=== PATIENT | female | born 1955 | race Caucasian/White ===

== ENCOUNTER → 2021-04-07 14:01 | Outpatient (CLI) | payer BC, SELFPAY ==
--- NOTE | 2021-04-07 14:03 | CA_ITS ---
FINAL REPORT TECHNIQUE: Multiple transverse and longitudinal scans were performed of the femoropopliteal deep venous system, with augmentation and compression maneuvers. CLINICAL HISTORY: Chronic asymmetric swelling and pain of left leg after TKR 06/2019. Obesity FINDINGS: Normal phasic flow was noted in the visualized deep venous system. No intraluminal increased echogenicity is noted to suggest thrombus. There is normal compression and augmentation of the venous structures. No abnormal venous collaterals are seen. IMPRESSION: No evidence of deep venous thrombosis of the left lower extremity. Reviewed, Interpreted and Dictated by Edgardo Burr MD Transcribed by Devin Carmona Authenticated by Edgardo Burr MD on 04/07/2021 03:59:12 PM [facility]
--- NOTE | 2021-04-07 14:24 | XR_ITS ---
FINAL REPORT CLINICAL HISTORY: pain s/p tkr pain and swelling FINDINGS: 2 views of the left knee were obtained. There is no acute fracture or dislocation. There has been total joint prosthesis. There is no acute soft tissue abnormality. IMPRESSION: No acute process. Reviewed, Interpreted and Dictated by Edgardo Burr MD Transcribed by Devin Carmona Authenticated by Edgardo Burr MD on 04/07/2021 03:58:42 PM [facility]
[2021-04-07 16:07] LABS: Anion Gap 10.3 mEq/L (5-15); Blood Urea Nitrogen 12 mg/dl (7-17); Calcium 8.4 mg/dl (8.4-10.2); Carbon Dioxide 27 mmol/L (22.0-30.0); Chloride 106 mmol/L (98-107); Estimated Glomerular Filt Rate 101 ml/min (>60); GFR (African American) 122 ML/MIN (>60); Glucose 92 mg/dl (74-100); Potassium 4.3 mmoL/L (3.5-5.1); Sodium 139 mmol/L (136-145)
== END ==
PROVIDERS: PCP Family Medicine; Visit Provider Family Medicine
DX: M79.662 Pain in left lower leg (principal); M79.89 Other specified soft tissue disorders
CPT/HCPCS: 36415; 73560; 80048; 93971

== ENCOUNTER → 2022-05-17 09:33 | Outpatient (CLI) | payer MEDICARE, SELFPAY ==
[2022-05-17 10:34] LABS: Basophils # 0.1 K/mm3 (0-0.2); Eosinophils # 0.1 K/mm3 (0.0-0.4); Eosinophils % 2.1 % (0.1-12.0); Hematocrit 34.3 % (37.0-47.0); Hemoglobin 10.7 g/dL (12.2-16.2); Lymphocytes # 1.6 K/mm3 (0.7-4.5); Lymphocytes % 24.1 % (10-50); Mean Corpuscular HGB Conc 31.2 g/dL (31.8-35.4); Mean Corpuscular Hemoglobin 24.9 pg (27.0-31.2); Mean Corpuscular Volume 79.7 fl (81-99); Mean Platelet Volume 7.7 fl (7.4-10.4); Monocytes # 0.4 K/mm3 (0.1-1.0); Monocytes % 6.1 % (1.7-9.3); Neutrophils # 4.5 K/mm3 (1.8-7.8); Neutrophils % 66.7 % (37.0-80.0); Platelet Count 282 K/mm3 (142-424); Red Cell Distribution Width 16.1 % (11.5-17.5); White Blood Count 6.8 K/mm3 (4.8-10.8)
[2022-05-17 11:24] LABS: Chloride 107 mmol/L (98-107); Sodium 138 mmol/L (136-145)
[2022-05-17 11:25] LABS: Potassium 4.3 mmoL/L (3.5-5.1)
[2022-05-17 11:27] LABS: Alanine Aminotransferase 23 U/L (12-78); Alkaline Phosphatase 103 U/L (38-126); Anion Gap 9.3 mEq/L (5-15); Aspartate Amino Transferase 31 U/L (14-36); Bilirubin,Indirect 0.6 mg/dL (0.0-0.9); Bilirubin,Total 0.6 mg/dl (0.2-1.3); Bilirubin,Unconjugated 0.6 mg/dL (0.0-1.1); Blood Urea Nitrogen 14 mg/dl (7-17); Calcium 8.2 mg/dl (8.4-10.2); Carbon Dioxide 26 mmol/L (22.0-30.0); Cholesterol 166 mg/dl (140-200); Estimated Glomerular Filt Rate 72 ml/min (>60); GFR (African American) 87 ML/MIN (>60); Glucose 91 mg/dl (74-100); Total Protein,Serum 6.7 g/dl (6.3-8.2); Triglycerides 88 mg/dl (30-150); VLDL Cholesterol 18 mg/dL (0-40)
[2022-05-17 11:28] LABS: Chol/HDL Ratio 2.6 (1-3.5); HDL Cholesterol 65 mg/dl (40-60); Magnesium 2.1 mg/dl (1.6-2.3)
[2022-05-17 11:39] LABS: Direct LDL Cholesterol 83.09 mg/dL (100-129)
[2022-05-17 11:45] LABS: Free T4 (Free Thyroxine) 1.09 ng/dl (0.78-2.19)
[2022-05-17 11:59] LABS: Thyroid Stimulating Hormone 1.91 uIU/mL (0.465-4.68)
== END ==
LOC: LAB 09:35
PROVIDERS: PCP Family Medicine; Visit Provider Nurse Practitioner
DX: I48.0 Paroxysmal atrial fibrillation (principal); R00.1 Bradycardia, unspecified; R00.2 Palpitations; R07.9 Chest pain, unspecified; R60.0 Localized edema; R94.31 Abnormal electrocardiogram [ECG] [EKG]
CPT/HCPCS: 36415; 80048; 80061; 80076; 83735; 84439; 84443; 85025; 93270

== ENCOUNTER → 2022-06-19 08:20 | Outpatient (CLI) | payer MEDICARE, SELFPAY ==
--- NOTE | 2022-06-19 | CA_ITS ---
APPROVED REPORT Exam: Pharmacologic Technologist: Dorina Reynoso, Ht: 5 ft 4 in Wt: 254 lbs BSA: 2.17 m2 HR: 56 bpm BP: 123/48 mmHg Medical History Medications: Potassium Chloride,,,,, Gabapentin,,,,, Metoprolol Succinate,,,,, Albuterol,,,,, Protonix,,,,, BuMETANIDE,,,,, Pramipexale,,,,, Stress Test Details Test: LEXISCAN HR Resting HR: 55 bpm Max Heart Rate (APMHR): 155.093943 bpm Max HR Achieved: 81 bpm Target HR (85% APMHR): 131.687990 bpm % of APMHR: 52.26 Recovery HR: 66 bpm BP Resting BP: 123/48 mmHg Max BP: 123/48 mmHg Recovery BP: 116.0/51.0 mmHg ECG Clinical Exercise duration: 04:00 min Highest Stage Achieved: Exercise capacity: 1.0 METs Stress ECG Conclusion During lexiscan pt experinced mild SOA. Rare PAC noted. <1mm ST depression. Non diagnostic, target HR not achieved, no ischemic changes. Test Summary REST . . . . . . . Sitting REST 02:27 . . 55 . 123/ 48 . . Stage 1 01:00 . . 79 . . . . Stage 2 01:00 . . 75 . . . . Stage 3 01:00 . . 71 . 119/ 49 . . Stage 4 01:00 . . 70 . 117/ 49 . Stop exercise at 04:00 RECOVERY 01:00 . . 69 . . . . RECOVERY 02:00 . . 67 . 116/ 51 . . RECOVERY 03:00 . . 65 . 114/ 47 . . RECOVERY 03:12 . . 67 . 114/ 47 . . Electronically signed by : Gurvinder Escalante MD 06/20/2022 09:54:09
--- NOTE | 2022-06-19 08:34 | NM_ITS ---
APPROVED REPORT Exam: Nuclear Stress Test Indication: DYSRYTHMIA, FM HX,. C.P., SOA, PALPITATIONS, SYNCOPE, A-FIB Patient Location: Outpatient Stress Tech: Dorina Reynoso HI Tech:Alison AdamsBEN baer RT (R)(N)(M) Ht: 5 ft 5 in Wt: 254 lbs Bra Size: DD HR: 56 bpm BP: 123/48 mmHg BSA: 2.19 m2 TID: 1.16 BMI: 42.2 History: DYSRYTHMIA, FM HX,. C.P., SOA, PALPITATIONS, SYNCOPE, FATIGUE, AFIB PT CANNOT LAY ON STOMACH FOR PRONE IMAGES Procedure: Patient received 0.0 mg of intravenous Lexiscan, resting heart rate 56 bpm, resting blood pressure 123/48 mmHg, with Lexiscan maximum heart rate achieved was 69 bpm which is % of the maximum predicted heart rate and blood pressure was 119/49 mmHg. With Lexiscan, patient denied any complaint of chest pain. Cardiac Stress and Resting SPECT Images: Cardiac Stress and Resting SPECT images were obtained using technetium 99m Myoview 29.3 mCi stress and 9.46 mCi at rest. Stress images reveal severely decreased myocardial activity in the anterior wall while rest images reveal significant improvement but still decreased in the anterior wall. Gated images calculated ejection fraction of 59% with normal wall motion Conclusion: Previous nontransmural myocardial infarction well in the anterior wall with a significant degree of reversible ischemia accompanied by normal ejection fraction normal wall motion Electronically signed by : Gurvinder Escalante MD 06/20/2022 13:07:09
[2022-06-19 11:44] LABS: Lipase 120 U/L (23-300)
[2022-06-19 11:48] LABS: Iron 34 ug/dL (37-170)
[2022-06-19 11:57] LABS: Total Iron Binding Capacity 443 ug/dL (265-497)
== END ==
LOC: RT 08:22
PROVIDERS: PCP Family Medicine; Visit Provider Nurse Practitioner
DX: R00.1 Bradycardia, unspecified (principal); R07.9 Chest pain, unspecified; R60.0 Localized edema; R94.31 Abnormal electrocardiogram [ECG] [EKG]; R10.13 Epigastric pain
CPT/HCPCS: 36415; 78452; 83540; 83550; 83690; 93017; 93306; A9502; J2785

== ENCOUNTER → 2022-06-26 10:37 | Outpatient (CLI) | payer MEDICARE, SELFPAY ==
--- NOTE | 2022-06-26 10:38 | CA_ITS ---
FINAL REPORT TECHNIQUE: Ultrasound images of the deep venous system were obtained from the left groin to the calf veins. CLINICAL HISTORY: edema x 6 years. Patient denies trauma. Morbid obesity. Left lower extremity painful to touch. FINDINGS: The deep venous system is normally compressible. Normal flow is identified. IMPRESSION: No evidence of left lower extremity DVT. Reviewed, Interpreted and Dictated by Fernando Wayne III, MD Transcribed by Brenda Garcia Authenticated and . [facility]
== END ==
LOC: RT 10:38
PROVIDERS: PCP Family Medicine; Visit Provider Nurse Practitioner
DX: E66.01 Morbid (severe) obesity due to excess calories (principal); I20.8 Other forms of angina pectoris; I48.0 Paroxysmal atrial fibrillation; R00.1 Bradycardia, unspecified; R00.2 Palpitations; R60.0 Localized edema; R60.9 Edema, unspecified; R94.31 Abnormal electrocardiogram [ECG] [EKG]; R94.39 Abnormal result of other cardiovascular function study; Z68.42 Body mass index [BMI] 45.0-49.9, adult
CPT/HCPCS: 93971

== ENCOUNTER 2022-06-29 08:46 | Day surgery (SDC) | payer MEDICARE, SELFPAY ==
[2022-06-29] VITALS (10 sets, daily range): BP systolic 108–162; BP diastolic 58–76; PULSE 65–77; RESP 16–18; O2SAT 94–100; BMI 45.8
--- NOTE | 2022-06-29 07:17 | IR_ITS ---
APPROVED REPORT Patient Location: Outpatient [employer]: BEN Huerta RT (R) PROCEDURES Left heart catheterization Left ventriculogram Selective coronary angiogram INDICATION Abnormal Myoview, Angina pectoris Informed consent was obtained prior to the procedure. COMPLICATIONS None Estimated Blood Loss: Less than 10 mls TECHNIQUE One percent lidocaine used to anesthetize the right anterior aspect of the wrist. The right radial artery was accessed via the Seldinger technique. A 6 [place] sheath was placed in the right radial artery. 150 mg magnesium sulfate, 800 mcg of nitroglycerin, 1mg Lidocaine and 5000 U Heparin were given through the arterial sheath. The papa catheter was also used to perform left heart catheterization, left ventriculogram and selective coronary angiogram. At the end of the procedure the sheath was removed good hemostasis was achieved using Traclet band, patient was transferred to the postop holding area in stable condition. ANGIOGRAPHIC RESULTS The left main artery Normal The left anterior descending artery Is proximally normal and has a mid vessel 30% calcified nonflow limiting stenosis The circumflex artery Nondominant with mild 10% luminal regularities The right coronary artery Dominant with mild 10% luminal irregularities The PATEL ventriculogram reveals Normal 65% The left ventricular end-diastolic pressure 25 mmHg IMPRESSION Mild nonflow limiting coronary disease Normal ejection fraction Elevated LVEDP consistent with diastolic dysfunction PLAN 1. Treatment of diastolic dysfunction 2. Risk factor modification Electronically signed by : Gurvinder Escalante MD 06/29/2022 12:23:53
[2022-06-29 09:20] LABS: Basophils % 0.5 % (0.1-2.0); Eosinophils # 0.2 K/mm3 (0.0-0.4); Eosinophils % 2.4 % (0.1-12.0); Hematocrit 35.5 % (37.0-47.0); Hemoglobin 11.4 g/dL (12.2-16.2); Lymphocytes # 1.7 K/mm3 (0.7-4.5); Lymphocytes % 21.1 % (10-50); Mean Corpuscular HGB Conc 32.1 g/dL (31.8-35.4); Mean Corpuscular Volume 77.7 fl (81-99); Mean Platelet Volume 7.5 fl (7.4-10.4); Monocytes # 0.4 K/mm3 (0.1-1.0); Neutrophils # 5.6 K/mm3 (1.8-7.8); Platelet Count 315 K/mm3 (142-424); Red Blood Count 4.56 M/mm3 (4.20-5.40); Red Cell Distribution Width 16.1 % (11.5-17.5); White Blood Count 7.8 K/mm3 (4.8-10.8)
[2022-06-29 09:27] LABS: Chloride 99 mmol/L (98-107); Sodium 136 mmol/L (136-145)
[2022-06-29 09:31] LABS: Blood Urea Nitrogen 15 mg/dl (7-17); Calcium 8.1 mg/dl (8.4-10.2); Carbon Dioxide 30 mmol/L (22.0-30.0); Creatinine Clearance Estimated 46 mL/min (50-200); Estimated Glomerular Filt Rate 72 ml/min (>60); GFR (African American) 87 ML/MIN (>60); Glucose 89 mg/dl (74-100)
--- NOTE | 2022-06-29 11:55 | SUR.PHASEII ---
no family in the waiting area for Dr. Escalante to speak with after procedure.
== END 2022-06-29 14:47 | disposition home or self-care (01) ==
PROVIDERS: PCP Family Medicine; Visit Provider Internal Medicine
DX: E66.01 Morbid (severe) obesity due to excess calories (principal); I25.118 Atherosclerotic heart disease of native coronary artery with other forms of angina pectoris; I48.0 Paroxysmal atrial fibrillation; R00.1 Bradycardia, unspecified; R00.2 Palpitations; R60.0 Localized edema; R60.9 Edema, unspecified; R94.31 Abnormal electrocardiogram [ECG] [EKG]; R94.39 Abnormal result of other cardiovascular function study; Z68.41 Body mass index [BMI] 40.0-44.9, adult; Z79.899 Other long term (current) drug therapy; Z79.01 Long term (current) use of anticoagulants; I10 Essential (primary) hypertension
CPT/HCPCS: 80048; 85025; 93458; 99152; C1725; C1760; C1769; J1644; Q9967

== ENCOUNTER → 2022-07-19 15:16 | Outpatient (CLI) | payer MEDICARE, SELFPAY ==
[2022-07-19 16:51] LABS: Anion Gap 13.9 mEq/L (5-15); Blood Urea Nitrogen 17 mg/dl (7-17); Calcium 8.1 mg/dl (8.4-10.2); Carbon Dioxide 27 mmol/L (22.0-30.0); Chloride 101 mmol/L (98-107); Estimated Glomerular Filt Rate 63 ml/min (>60); GFR (African American) 76 ML/MIN (>60); Glucose 110 mg/dl (74-100); Potassium 3.9 mmoL/L (3.5-5.1); Sodium 138 mmol/L (136-145)
== END ==
PROVIDERS: PCP Family Medicine; Visit Provider Nurse Practitioner Family
DX: R60.9 Edema, unspecified (principal); R94.31 Abnormal electrocardiogram [ECG] [EKG]
CPT/HCPCS: 36415; 80048

== ENCOUNTER → 2022-10-18 23:57 | Outpatient (CLI) | payer MEDICARE, SELFPAY ==
[2022-10-18 19:09] LABS: Alanine Aminotransferase 20 U/L (12-78); Albumin Level 3.7 g/dl (3.5-5.0); Albumin/Globulin Ratio 1.2 (1.1-1.8); Alkaline Phosphatase 87 U/L (38-126); Anion Gap 12.1 mEq/L (5-15); Aspartate Amino Transferase 26 U/L (14-36); Bilirubin,Total 0.5 mg/dl (0.2-1.3); Blood Urea Nitrogen 15 mg/dl (7-17); Calcium 8.3 mg/dl (8.4-10.2); Carbon Dioxide 27 mmol/L (22.0-30.0); Chloride 104 mmol/L (98-107); Chol/HDL Ratio 1.9 (1-3.5); Cholesterol 164 mg/dl (140-200); Estimated Glomerular Filt Rate 63 ml/min (>60); GFR (African American) 76 ML/MIN (>60); Glucose 91 mg/dl (74-100); HDL Cholesterol 85 mg/dl (40-60); Potassium 4.1 mmoL/L (3.5-5.1); Sodium 139 mmol/L (136-145); Total Protein,Serum 6.7 g/dl (6.3-8.2); Triglycerides 78 mg/dl (30-150); VLDL Cholesterol 16 mg/dL (0-40)
[2022-10-18 19:20] LABS: Direct LDL Cholesterol 65.02 mg/dL (100-129)
[2022-10-18 19:50] LABS: Basophils % 0.4 % (0.1-2.0); Eosinophils # 0.2 K/mm3 (0.0-0.4); Eosinophils % 3.5 % (0.1-12.0); Hematocrit 32.8 % (37.0-47.0); Lymphocytes % 31.9 % (10-50); Mean Corpuscular HGB Conc 30.4 g/dL (31.8-35.4); Mean Corpuscular Hemoglobin 22.8 pg (27.0-31.2); Mean Corpuscular Volume 74.8 fl (81-99); Mean Platelet Volume 7.9 fl (7.4-10.4); Monocytes # 0.3 K/mm3 (0.1-1.0); Monocytes % 5.5 % (1.7-9.3); Neutrophils # 3.6 K/mm3 (1.8-7.8); Neutrophils % 58.7 % (37.0-80.0); Platelet Count 269 K/mm3 (142-424); Red Blood Count 4.39 M/mm3 (4.20-5.40); Red Cell Distribution Width 16.3 % (11.5-17.5); White Blood Count 6.1 K/mm3 (4.8-10.8)
[2022-10-18 21:20] LABS: Iron 25 ug/dL (37-170)
[2022-10-18 21:28] LABS: Hemoglobin A1C 5.4 % (4.0-6.0)
[2022-10-18 21:29] LABS: Total Iron Binding Capacity 479 ug/dL (265-497)
== END ==
PROVIDERS: PCP Family Medicine; Visit Provider Family Medicine
DX: E66.9 Obesity, unspecified (principal); Z86.2 Personal history of diseases of the blood and blood-forming organs and certain disorders involving the immune mechanism; Z68.41 Body mass index [BMI] 40.0-44.9, adult; D50.9 Iron deficiency anemia, unspecified; Z79.899 Other long term (current) drug therapy
CPT/HCPCS: 80053; 80061; 83036; 83540; 83550; 85025

== ENCOUNTER 2022-11-16 09:00 | Outpatient (RCR) | payer MEDICARE, SELFPAY ==
--- NOTE | 2022-10-31 15:46 | HMH.PTOPWND ---
Rehab Outpt Wound Evaluation Rehab OP Wound Evaluation Start: 10/31/22 15:27 Freq: Status: Active Protocol: Document 10/31/22 15:27 GIOVANNI (Rec: 10/31/22 15:46 PHORPATRICK [id number]) E-signed By Lanre Keller, PT Subjective/History History History This is the initial PT eval for María Bucio, 67 yowf who presents with c/o B LE worsening edema x ~ 7 yrs ago. She reports, I was getting an iron infusion and they messed it all up and it didn't go into my vein. That bothered my arm so much I couldn't move it and it hurt terribly the next day. Also, the next day both of my legs swelled up really bad and the haven't went down since. She reports her PCP changed her diuretic ~ 2 wks ago and this has helped her edema, a little. SHe reports significant tenderness in the gaiter area of B LE and intermittent pains from restless leg in B LE. She has PMH of CAD, a-fib, COPD, B TKA, CCY, partial hysterectomy , gastric bypass. Subjective Subjective Currently she reports 0/10 pain, but at worst pain is 10/ 10 intermittently. She presents with 3+ pitting edema to B LE at this time and MODERATE fibrotic edema throughout B LE, R > L. 3/4 TTP to B LE in gaiter area. Mild blanchable erythema noted to B lowe rlegs as well. New diagnosis of cancer in past 12 No months? Lymphedema Eval Classification of Lymphedema Secondary Lymphedema Yes: multi-factorial Stemmer's sign Stemmer's Sign no Stage of Lymphedema Lymphedema stages Stage II (Pitting edema, increased fibrosis w/ decreased pitting) Skin Changes Dry Skin Yes Taut, Shiny Skin Yes Skin Folds Yes Redness Yes Wounds Yes Discoloration of Skin Yes Other Changes Yes Pain Scale Pain Scale (0-10) 10 Affected Extremities Areas Affected by Lymphedema/Edema Right Lower Extremity,Left Lower Extremity Manual Lymphatic Drainage Treatment Area MLD Treatment Area Right Lower Extremity,Left Lower Extremity Wound Problems/Impairments Impairments Problems/Impairmments Palpation Tenderness,Impaired Endurance,Impaired Gait Pattern,Impaired Walking, Impaired Standing,Impaired Household Care,Impaired Stair Climbing,Impaired Incline Stepping,Impaired Stepping on Uneven Surface,Increased Edema ,Lymphedema Present,Wound Care Needs,Subjective C/O Pain, Impaired Self Care/Self Management Prognosis Rehab Potential Good Clinical Impression Consistent with Diagnosis Yes Short Term Goals Number of Weeks 2 Decreased Palpation Tenderness Yes: 03/18 B lower leg Decrease Edema Yes: 2+ pitting edema B LE Decrease Lymphedema Yes: MILD fibrotic edema B LE Decrease Subjective C/O Pain Yes: 08/21 at worst Patient to Understand Lymphedema Yes Treatment and Exercises Decrease Girth Measurments by (cm) Yes: B LE total by 5 cm ea Cotton Classer Aide Goals Number of Weeks 4 Decreased Palpation Tenderness Yes: 02/15 B lower leg Improve Ability For Household Care Yes Decrease Edema Yes: 1+ pitting edema to B LE Decrease Lymphedema Yes: No fibrotic edema B LE Decrease Subjective C/O Pain Yes: 05/22 at worst Patient to be Ind w/ HEP Yes Patient to be Ind w/ [place] Yes Compression Garments Patient to Adhere Lymphedema Precautions Yes Decrease Girth Measurments by (cm) Yes: B LE total by 20 cm ea Outpatient Therapy Plan of Care Treatment Plan May Include Therapeutic Exercise Including Home Yes Exercise Program Manual Therapy Techniques Yes Neuromuscular Re-education Yes Therapeutic Activities to Return to Yes Previous Functional/Work Level ADL/Self Care Education Yes Orthotics/Bracing/Splinting Yes Vasopneumatic Compression Pump Yes Manual Lymphatic Drainage Yes Wound Care Yes Eval/Re-Eval Yes Frequency Times per week 2 Duration Number of Weeks 4 Addendums This patient is a candidate for social No or vocational rehab? Patient/Guardian verbally acknowledges Yes understanding of treatment program and consents to further treatment? Patient/Guardian verbally acknowledges Yes understanding of diagnosis, prognosis and goals for treatment? Eval Complexity PT Charges 42126 - High Complexity PHYSICIAN CERTIFICATION: I certify the specified therapy services for María Bucio are required, authorized, and reviewed every 30 days.
== END 2022-11-16 10:10 | disposition home or self-care (01) ==
LOC: PT 09:00
PROVIDERS: Visit Provider Family Medicine
DX: R60.0 Localized edema (principal)
CPT/HCPCS: 97140; 97163

== ENCOUNTER → 2023-01-01 08:24 | Outpatient (CLI) | payer MEDICARE, SELFPAY ==
[2023-01-01 19:04] LABS: Basophils % 0.8 % (0.1-2.0); Eosinophils # 0.1 K/mm3 (0.0-0.4); Eosinophils % 2.2 % (0.1-12.0); Hematocrit 28.2 % (37.0-47.0); Hemoglobin 8.6 g/dL (12.2-16.2); Lymphocytes # 1.2 K/mm3 (0.7-4.5); Lymphocytes % 21.3 % (10-50); Mean Corpuscular HGB Conc 30.5 g/dL (31.8-35.4); Mean Corpuscular Hemoglobin 21.6 pg (27.0-31.2); Mean Platelet Volume 9.2 fl (7.4-10.4); Monocytes # 0.5 K/mm3 (0.1-1.0); Monocytes % 8.1 % (1.7-9.3); Neutrophils # 3.9 K/mm3 (1.8-7.8); Neutrophils % 67.6 % (37.0-80.0); Platelet Count 332 K/mm3 (142-424); Red Blood Count 3.97 M/mm3 (4.20-5.40); Red Cell Distribution Width 17.5 % (11.5-17.5); White Blood Count 5.7 K/mm3 (4.8-10.8)
[2023-01-01 19:51] LABS: Alanine Aminotransferase 21 U/L (12-78); Albumin/Globulin Ratio 1.5 (1.1-1.8); Alkaline Phosphatase 69 U/L (38-126); Anion Gap 12.1 mEq/L (5-15); Aspartate Amino Transferase 30 U/L (14-36); Bilirubin,Total 0.5 mg/dl (0.2-1.3); Blood Urea Nitrogen 18 mg/dl (7-17); Calcium 8.5 mg/dl (8.4-10.2); Carbon Dioxide 26 mmol/L (22.0-30.0); Chloride 105 mmol/L (98-107); Chol/HDL Ratio 3.1 (1-3.5); Cholesterol 178 mg/dl (140-200); Estimated Glomerular Filt Rate 72 ml/min (>60); GFR (African American) 87 ML/MIN (>60); Globulin 2.7 g/dL (1.3-3.2); Glucose 85 mg/dl (74-100); HDL Cholesterol 57 mg/dl (40-60); Potassium 4.1 mmoL/L (3.5-5.1); Sodium 139 mmol/L (136-145); Total Protein,Serum 6.7 g/dl (6.3-8.2); Triglycerides 75 mg/dl (30-150); VLDL Cholesterol 15 mg/dL (0-40)
[2023-01-01 20:02] LABS: Direct LDL Cholesterol 96.04 mg/dL (100-129)
[2023-01-01 20:44] LABS: Iron 23 ug/dL (37-170)
[2023-01-01 20:53] LABS: Total Iron Binding Capacity 497 ug/dL (265-497)
[2023-01-01 21:15] LABS: Thyroid Stimulating Hormone 1.15 uIU/mL (0.465-4.68)
== END ==
PROVIDERS: PCP Family Medicine; Visit Provider Family Medicine
DX: R05.9 Cough, unspecified (principal); R07.9 Chest pain, unspecified; Z86.2 Personal history of diseases of the blood and blood-forming organs and certain disorders involving the immune mechanism; R53.83 Other fatigue
CPT/HCPCS: 80053; 80061; 83540; 83550; 84443; 85025

== ENCOUNTER 2024-07-14 11:35 | Outpatient (CLI) | payer MEDICARE, SELFPAY ==
[2024-07-14 18:32] LABS: Basophils # 0.1 K/mm3 (0-0.2); Eosinophils # 0.1 Kmm3 (0.0-0.4); Eosinophils % 2.6 % (0.1-12.0); Hematocrit 32.6 % (37.0-47.0); Hemoglobin 9.5 g/dL (12.2-16.2); Immature Granulocytes # 0.01 10^3uL; Immature Granulocytes % 0.2 %; Lymphocytes # 1.2 K/mm3 (0.7-4.5); Lymphocytes % 24.3 % (10-50); Mean Corpuscular HGB Conc 29.1 g/dL (31.8-35.4); Mean Corpuscular Hemoglobin 25.5 pg (27.0-31.2); Mean Corpuscular Volume 87.4 fl (81-99); Monocytes # 0.4 K/mm3 (0.1-1.0); Monocytes % 8.7 % (1.7-9.3); Neutrophils # 3.1 K/mm3 (1.8-7.8); Neutrophils % 63.2 % (37.0-80.0); Nucleated Red Blood Cells # 0 10^3/uL; Nucleated Red Blood Cells % 0 %; Platelet Count 235 K/mm3 (142-424); Red Blood Count 3.73 M/mm3 (4.20-5.40); Red Cell Distribution Width 15.1 % (11.5-17.5); Red Cell Distribution Width-SD 48.3 fL; White Blood Count 4.9 K/mm3 (4.8-10.8)
[2024-07-14 19:01] LABS: Alanine Aminotransferase 19 U/L (12-78); Albumin Level 3.7 g/dl (3.5-5.0); Albumin/Globulin Ratio 1.4 (1.1-1.8); Alkaline Phosphatase 63 U/L (38-126); Anion Gap 8.3 mEq/L (5-15); Aspartate Amino Transferase 27 U/L (14-36); Bilirubin,Total 0.4 mg/dl (0.2-1.3); Blood Urea Nitrogen 21 mg/dl (7-17); Calcium 8.3 mg/dl (8.4-10.2); Carbon Dioxide 27 mmol/L (22.0-30.0); Chloride 107 mmol/L (98-107); Chol/HDL Ratio 2.2 (1-3.5); Cholesterol 160 mg/dl (140-200); Estimated Glomerular Filt Rate 72 ml/min (>60); GFR (African American) 87 ML/MIN (>60); Globulin 2.6 g/dL (1.3-3.2); Glucose 75 mg/dl (74-100); HDL Cholesterol 72 mg/dl (40-60); Potassium 4.3 mmoL/L (3.5-5.1); Sodium 138 mmol/L (136-145); Total Protein,Serum 6.3 g/dl (6.3-8.2); Triglycerides 63 mg/dl (30-150); VLDL Cholesterol 13 mg/dL (0-40)
[2024-07-14 19:12] LABS: Direct LDL Cholesterol 59.92 mg/dL (100-129)
[2024-07-14 19:14] LABS: Hemoglobin A1C 4.7 % (4.0-6.0)
[2024-07-14 19:37] LABS: Thyroid Stimulating Hormone 1.96 uIU/mL (0.465-4.68)
[2024-07-14 19:57] LABS: Vitamin B12 224 pg/mL (239-931)
== END 2024-07-14 23:59 | disposition home or self-care (01) ==
LOC: LAB.DROPOF 07-15 14:38
PROVIDERS: PCP Nurse Practitioner; Visit Provider Nurse Practitioner
DX: I48.0 Paroxysmal atrial fibrillation (principal); I25.10 Atherosclerotic heart disease of native coronary artery without angina pectoris; I10 Essential (primary) hypertension; J44.9 Chronic obstructive pulmonary disease, unspecified; R60.0 Localized edema
CPT/HCPCS: 80053; 80061; 82607; 83036; 84443; 85025

== ENCOUNTER 2024-08-11 10:41 | Outpatient (CLI) | payer MEDICARE, SELFPAY ==
--- OUTSIDE RECORDS SUMMARY | 2024-07-15 14:30 | XMS_ITS | Encounter Summary ---
Author Organization [facility] Address [address] [place] [address] Care Team Providers Care Ballpoint Pen Cartridge Tester Name Role Phone Unavailable Primary Care Provider Unavailabl e Reason for Referral * Consultation (Routine) - Authorization Not Needed Specialty Diagnoses / Procedures Referred By Akhil myers Referred To Contact Wound Care Diagnoses Venous stasis ulcer of other part of right lower leg limited to breakdown of skin with varicose veins (HCC) Lymphedema Procedures IA DEBRIDEMENT SUBCUTANEOUS TISSUE 1ST 20 SQ CM/< IA DEBRIDEMENT MUSCLE &/FASCIA 1ST 20 SQ CM/< IA DEBRIDEMENT BONE 1ST 20 SQ CM/< IA DEBRIDEMENT SUBCUTANEOUS TISSUE EA ADDL 20 SQ CM IA DEBRIDEMENT MUSCLE &/FASCIA EA ADDL 20 SQ CM IA DEBRIDEMENT BONE EACH ADDITIONAL 20 SQ CM IA DEBRIDEMENT OPEN WOUND FIRST 20 SQ CM/< IA DEBRIDEMENT OPN WND EA ADDL 20 SQ CM/PRT THEREOF Marah Mccormick PA-C [address] [place] [address] Phone: tel: fax: [facility] [place] [address] Phone: tel: fax: Referral ID Status Reason Start Date Expiration Date Visits Requested Visits Authorized [id number] Authorization Not Needed Specialty Services Required 07/21/2024 07/15/2025 99 99 Comments Active venous stasis ulcer - undergoing venous reflux work-up at [facility] FOR CIRCAID WRAPS for post-treatment if able * Ultrasound (Routine) - Closed Specialty Diagnoses / Procedures Referred By Akhil myers Referred To Contact Radiology Diagnoses Venous stasis ulcer of other part of right lower leg limited to breakdown of skin with varicose veins (HCC) Lymphedema Procedures [facility] REFL[facility] US COMMUNICATION ORDER Marah Mccormick PA-C [address] [place] [address] Phone: tel: fax: [facility] [place] [address] [place] [address] Phone: tel: fax: Referral ID Status Reason Start Date Expiration Date Visits Re quested Visits Authorized [id number] Closed 07/15/2024 07/15/2025 1 1 Reason for Visit * Reason Comments Consult Encounter Details Date Type Department Care Team (Late st Contact Info) Description 07/15/2024 2:30 PM EDT Office Visit [facility] [place] [address] [place] [address] Marah Mccormick PA-C [address] [place] [address] Venous stasis ulcer of other part of right lower leg limited to breakdown of skin with varicose veins (HCC) (Primary Dx); Lymphedema Social History Tobacco Use Types Packs/Day Years Used Date Smoking Tobacco: Never Smokeless Tobacco: Never Tobacco Cessation:Counseling Given: Not Answered Alcohol Use Standard Drinks/Week Comments Never 0 (1 standard drink = 0.6 oz pur e alcohol) Comments Unknown Sex and Gender Information Value Date Recorded Sex Assigned at Not on file Legal Sex Female 3:42 PM EST Gender Identity Not on file Sexual Orientation Not on file documented as of this encounter Last Filed Vital Signs Vital Sign Reading Time Taken Comments Blood Pressure 158/80 07/15/2024 2:34 PM EDT Pulse 61 07/15/2024 2:34 PM EDT Temperature 37 C (98.6 F) 07/15/2024 2:34 PM EDT Respiratory Rate - - Oxygen Saturation - - Inhaled Oxygen Concentration - - Weight 120.1 kg (264 lb 12.8 oz) 07/15/2024 2:34 PM EDT Height - - Body Mass Index - - documented in this encounter Ordered Prescriptions Prescription Sig Dispense Quantity Refills Last Filled Start Date End Date C-Thigh Highs MISCELLANEOU 1 Device by MISCELLANEOUS route once for 1 dose. 20-30 mmHg 1 Each 07/15/2024 07/16/19 25 documented in this encounter Progress Notes * Marah Mccormick PA-C - 07/15/2024 2:30 PM EDT Images from the original note were not included. Patient Name: María Bucio Date of : 1955 Date of Service:07/15/2024 INITIAL VISIT - CONSULTATION History: A 68 y.o. female with a history of bilateral lower extremity varicose veins with weeping, edema and active wound of the right lower leg. She presents for evaluation in referral from her PCP.Symptoms include: aching, heaviness, cramping, throbbing, pain, pruritus, swelling, and restless legs Prior vein treatments include: None. Compression stockings have been worn intermittently over theyears and actually worsen her symptoms as they have been knee high and cause popliteal varicosity irritation. Family history is positive for varicose veins in mother and sibling(s). Negative history of SVT/DVT/PE. She has never seen wound care. Allergies Allergen Reactions Ropinirole Nausea And Vomiting Current Outpatient Medications Medication Sig Dispense Refill ELIQUIS 5 mg Oral Tablet gabapentin (NEURONTIN) 600 mg Oral Tablet Take 600 mg by mouth daily. metoclopramide HCl (GIMOTI) 15 mg/spray Nasl spray with pump 1 [place] by Nasal route. pramipexole (MIRAPEX) 1 mg Oral Tablet rosuvastatin (CRESTOR) 10 mg Oral Tablet Take 10 mg by mouth nightly. sotaloL (BETAPACE) 80 mg Oral Tablet albuterol (PROVENTIL HFA;VENTOLIN HFA) 90 mcg/actuation Inhl HFA Aerosol Inhaler Inhale 2 Puffs into the lungs. aspirin 81 mg Oral Tablet, Delayed Release (E.C.) Take 81 mg by mouth daily. C-Thigh Highs MISCELLANEOU 1 Device by MISCELLANEOUS route once for 1 dose. 20- 30 mmHg 1 Each 0 No current facility-administered medications for this visit. History reviewed. No pertinent past medical history. Social History Socioeconomic History Marital status: Spouse name: Not on file Number of children: Not on file Years of education: Not on file Highest education level: Not on file Occupational History Not on file Tobacco Use Smoking status: Never Smokeless tobacco: Never Substance and Sexual Activity Alcohol use: Never Drug use: Never Sexual activity: Not on file Other Topics Concern Not on file Social History Narrative Not on file Social Drivers of Health Financial Resource Strain: Not on file Food Insecurity: Not on file Transportation Needs: Not on file Physical Activity: Not on file Stress: Not on file Social Connections: Not on file Intimate Partner Violence: Not At Risk (04/05/2023) Received from [facility] Abuse Screen Feels Unsafe at Home or Work/School: no Feels Threatened by Someone: no Does Anyone Try to Keep You From Having Contact with Others or Doing Things Outside Your Home?: no Physical Signs of Abuse Present: no Housing Stability: Unknown (04/05/2023) Received from [facility] Housing Stability Current Living Arrangements: home Potentially Unsafe Housing Conditions: Not on file Past Surgical History: Procedure Laterality Date CHOLECYSTECTOMY 1996 TUBAL LIGATION 1984 Social History Tobacco Use Smoking Status Never Smokeless Tobacco Never Review of Systems: No history of shortness of breath, chest pain, fever or chills. Physical Exam: Vitals: 07/15/24 1434 BP: 158/80 Pulse: 61 Temp: 98.6 ??F (37 ??C) GENERAL: Alert & oriented x 3. LUNGS: Respirations non-labored. RIGHT LOWER EXTREMITY: Lipodermatosclerosis with open wound lateral lower leg. 2+ pitting edema to level of knee. Pedal pulses intact by doppler. LEFT LOWER EXTREMITY: Lipodermatosclerosis. No open wounds/sores. 2+ pitting edema to the level of the knee. Pedal pulses intact by doppler. Venous Stasis Exam Findings: Left: edema, pigmentation or eczema, and lipodermatosclerosis or atrophie anali Right: varicose veins, edema, pigmentation or eczema, lipodermatosclerosis or atrophie anali, andactive venous ulcer CEAP classification for reference: C0: no visible or palpable signs of venous disease C1: telangiectasies or reticular veins C2: varicose veins C3: edema C4a: pigmentation or eczema C4b: lipodermatosclerosis or atrophie anali C5: healed venous ulcer C6: active venous ulcer ASSESSMENT: 1. CEAP class 6 disease involving the right extremity and class 4 disease involving the left. Visible varicose veins with signs and symptoms of venous reflux disease. no signs of central venous obstruction. PLAN: 1. Immediate referral to wound care for venous stasis ulcer wound management. This will include wraps but ultimately she will need something like a circaid wrap for long-term, post-procedure compression. Encouraged to elevate legs daily when at rest. Limited ability to engage in daily exercise regimen due to co-morbidities. 2. Urgent bilateral lower extremity venous doppler ultrasound for mapping of the patient's distribution of disease. 3. Depending on the patient's distribution, a combination of EVLT, ambulatory phlebectomy, and sclerotherapy may be necessary for appropriate therapy. The potential risks alternatives and benefits ofthe above therapies were discussed with the patient, who indicated understanding and wishes to proceed. Marah Mccormick PA-C 45 minutes were spent with the patient. 50% of the time was spent on counseling and coordination ofcare. Cosigned by Jesus Tarango MD at 07/16/2024 10:45 AM EDT documented in this encounter Plan of Treatment Upcoming Encounters Date Type Department Care Team (Late st Contact Info) Description 08/14/2024 2:30 PM EDT Office Visit [facility] [place] [address] [facility] [address] [place] [address] Corby Treadwell MD [address] [place] [address] Scheduled Referrals Name Type Priority Associated Diagnoses Orde r Schedule AMB REFERRAL TO WOUND CLINIC Outpatient Referral Routine Venous stasis ulcer of other part of right lower leg limited to breakdown of skin with varicose veins (HCC) Lymphedema Ordered: 07/15/2024 documented as of this encounter Visit Diagnoses Diagnosis Venous stasis ulcer of other part of right lower leg limited to breakdown of skin with varicose veins (HCC)- Primary Lymphedema Other lymphedema documented in this encounter Discontinued Medications Medication Sig Discontinue Reason Start Date End Da te C-Thigh Highs MISCELLANEOU 1 Device by MISCELLANEOUS route once for 1 dose. 20-30 mmHg Cancelled by 07/15/2024 07/15/2024 documented as of this encounter Historical Medications * This list may reflect changes made after this encounter. albuterol (PROVENTIL HFA;VENTOLIN HFA) 90 mcg/actuation Inhl HFA Aerosol Inhaler Inhale 2 Puffs into the lungs. ELIQUIS 5 mg Oral Tablet 07/15/2024 aspirin 81 mg Oral Tablet, Delayed Release (E.C.) Take 81 mg by mouth daily. gabapentin (NEURONTIN) 600 mg Oral Tablet Take 600 mg by mouth daily. 04/24/2024 metoclopramide HCl (GIMOTI) 15 mg/spray Nasl spray with pump 1 [place] by Nasal route. 01/24/2024 pramipexole (MIRAPEX) 1 mg Oral Tablet 06/10/2016 rosuvastatin (CRESTOR) 10 mg Oral Tablet Take 10 mg by mouth nightly. 10/20/2022 sotaloL (BETAPACE) 80 mg Oral Tablet 06/12/2024 added in this encounter Orders Nursing Count Last Ordered Date First Orde red Date [facility] US COMMUNICATION ORDER 1 2024 documented in this encounter
--- OUTSIDE RECORDS SUMMARY | 2024-08-06 09:00 | XMS_ITS | Encounter Summary ---
Author Organization [facility] Address [address] [place] [address] Care Team Providers Care Safe Technician Name Role Phone Unavailable Primary Care Provider Unavailabl e Reason for Visit * Ultrasound (Routine) - Closed Specialty Diagnoses / Procedures Referred By Akhil t Referred To Contact Radiology Diagnoses Venous stasis ulcer of other part of right lower leg limited to breakdown of skin with varicose veins (HCC) Lymphedema Procedures [facility] REFLUX US COMMUNICATION ORDER Marah Mccormick PA-C [address] [place] [address] Phone: tel: fax: [facility] [place] [address] [place] [address] Phone: tel: fax: Referral ID Status Reason Start Date Expiration Date Visits Re quested Visits Authorized [id number] Closed 07/15/2024 07/15/2025 1 1 Encounter Details Date Type Department Care Team (Latest Contact Info) Description 08/06/2024 9:00 AM EDT Clinical Support [facility] [place] [address] [place] [address] Venous stasis ulcer of other part of right lower leg limited to breakdown of skin with varicose veins (HCC) (Primary Dx) Social History Tobacco Use Types Packs/Day Years Used Date Smoking Tobacco: Never Smokeless Tobacco: Never Alcohol Use Standard Drinks/Week Comments Never 0 (1 standard drink = 0.6 oz pur e alcohol) Comments Unknown Sex and Gender Information Value Date Recorded Sex Assigned at Not on file Legal Sex Female 3:42 PM EST Gender Identity Not on file Sexual Orientation Not on file documented as of this encounter Progress Notes * Ching Newman - 08/06/2024 9:00 AM EDT Images from the original note were not included. .. BLE VRS documented in this encounter Plan of Treatment Upcoming Encounters Date Type Department Care Team (Late st Contact Info) Description 08/14/2024 2:30 PM EDT Office Visit [facility] [place] [address] [facility] [address] [place] [address] Corby Treadwell MD [address] [facility] [address] [facility] [address] [place] [address] documented as of this encounter Visit Diagnoses Diagnosis Venous stasis ulcer of other part of right lower leg limited to breakdown of skin with varicose veins (HCC)- Primary documented in this encounter
[2024-08-11 19:01] LABS: Basophils # 0.1 K/mm3 (0-0.2); Eosinophils # 0.1 Kmm3 (0.0-0.4); Eosinophils % 2.2 % (0.1-12.0); Hematocrit 35.1 % (37.0-47.0); Hemoglobin 10.4 g/dL (12.2-16.2); Immature Granulocytes # 0.01 10^3uL; Immature Granulocytes % 0.2 %; Lymphocytes # 1.2 K/mm3 (0.7-4.5); Lymphocytes % 20.3 % (10-50); Mean Corpuscular HGB Conc 29.6 g/dL (31.8-35.4); Mean Corpuscular Hemoglobin 24.2 pg (27.0-31.2); Mean Corpuscular Volume 81.8 fl (81-99); Mean Platelet Volume 10.1 fl (7.4-10.4); Monocytes # 0.6 K/mm3 (0.1-1.0); Monocytes % 9.3 % (1.7-9.3); Nucleated Red Blood Cells # 0 10^3/uL; Nucleated Red Blood Cells % 0 %; Platelet Count 268 K/mm3 (142-424); Red Blood Count 4.29 M/mm3 (4.20-5.40); Red Cell Distribution Width 15.8 % (11.5-17.5); Red Cell Distribution Width-SD 47.6 fL; White Blood Count 5.9 K/mm3 (4.8-10.8)
[2024-08-11 19:49] LABS: Chloride 102 mmol/L (98-107)
[2024-08-11 19:50] LABS: Potassium 4.3 mmoL/L (3.5-5.1); Sodium 137 mmol/L (136-145)
[2024-08-11 19:52] LABS: Alanine Aminotransferase 19 U/L (12-78); Albumin/Globulin Ratio 1.4 (1.1-1.8); Alkaline Phosphatase 68 U/L (38-126); Anion Gap 12.3 mEq/L (5-15); Aspartate Amino Transferase 29 U/L (14-36); Bilirubin,Total 0.7 mg/dl (0.2-1.3); Blood Urea Nitrogen 14 mg/dl (7-17); Carbon Dioxide 27 mmol/L (22.0-30.0); Cholesterol 134 mg/dl (140-200); Estimated Glomerular Filt Rate 62 ml/min (>60); GFR (African American) 76 ML/MIN (>60); Globulin 2.8 g/dL (1.3-3.2); Total Protein,Serum 6.8 g/dl (6.3-8.2); Triglycerides 99 mg/dl (30-150); VLDL Cholesterol 20 mg/dL (0-40)
[2024-08-11 19:53] LABS: Calcium 8.3 mg/dl (8.4-10.2); Glucose 87 mg/dl (74-100); HDL Cholesterol 68 mg/dl (40-60); Iron 39 ug/dL (37-170)
[2024-08-11 20:04] LABS: Direct LDL Cholesterol 40.07 mg/dL (100-129)
[2024-08-11 20:13] LABS: Total Iron Binding Capacity 430 ug/dL (265-497)
[2024-08-11 20:27] LABS: Thyroid Stimulating Hormone 1.39 uIU/mL (0.465-4.68)
[2024-08-11 20:37] LABS: Hepatitis C Ab Qual. W/ RFX NEGATIVE (Negative)
[2024-08-11 20:41] LABS: HIV Combo NEGATIVE (Negative)
[2024-08-11 20:58] LABS: Hemoglobin A1C 5.9 % (4.0-6.0)
--- OUTSIDE RECORDS SUMMARY | 2024-08-13 10:44 | XMS_ITS | Data Portability ---
Author Organization [email or web address], [place] Address [address] [place] [address] Care Team Providers Care Post Form Remover Name Role Phone LUIS EDUARDO NIEVES Primary Care Provider HANNAH ROMERO Main Line Assembler Assessment Encounter Date Assessment Date Assessment LastModified by Organization Details LastModified Time 07/14/2024 07/14/2024 Assessment 1. COPD-self reported *PFT (07/14/2024): no obstruction, no restriction, moderately reduced DLCO/VA + SEAN *FeNO (07/14/2024): 12 2. RAD 3. Dyspnea 4.Symptoms consistent with KENNETH; hypersomnia, daytime fatigue, snoring 5. Obesity *BMI/Weight (07/14/2024): 44.4/266.8 6. History of HTN, GERD, RLS, hyperlipidemia, Gastric bypass *managed by PCP/Cardiology Plan 1.Rx Symbicort 160 mcg 2 puffs BID; rinse mouth after each use; I personally demonstrated use of the inhaled device during todays visit 2. Continue Albuterol HFA prn; discussed indications for use 3.Order HST High suspicion of KENNETH. I discussed the anatomy and physiology of the disease. I explained common symptoms and occupational therapist assistants effects of the disease. We discussed diagnostic and treatment options as well as realistic expectations with treatment. 4. A1AT *The patient underwent genomic testing for vokmb-0-azsywlhe sin deficiency in the office today. Oral swab specimen was obtained by the nurse and sent to the lab for testing. 5. Request Chest Imaging from [facility] and [facility] 6. RTO after HST completed The patient underwent pulmonary function/FeNO testing today to evaluate complaints of dyspnea. Results were discussed with the patient. The patient was sent home with a home sleep test to evaluate complaints of snoring, non restorative sleep, excessive daytime sleepiness, hypersomnia and awakening gasping for breath. The patient was given written instructions after a personal demonstration on how to set up and start the study. Portions of this note may be dictated using voice recognition software and or use of a director medical affairs. Variances in spelling and vocabulary are possible and unintentional. Not all errors are caught/corrected . Please notify the author if any discrepancies are noted or if the meaning of any statement is not clear. This is a summary discussion with the patient and in no way is intended to be a verbatum summation of everything discussed. We apologize for any inconvenience. Not available 07/17/2024 08:05:25 07/18/2024 07/18/2024 Assessment 1. COPD-self reported *PFT (07/14/2024): no obstruction, no restriction, moderately reduced DLCO/VA + SEAN *FeNO (07/14/2024): 12 2. RAD 3. Dyspnea 4. KENNETH *HST(07/18/2024) : mild obstructive sleep apnea with AHI: 9.4, and sleep-related hypoxia with a kirill of 79%, and maximum heart rate 92. 5. Obesity *BMI/Weight (07/14/2024): 44.4/266.8 6. History of HTN, GERD, RLS, hyperlipidemia, Gastric bypass *managed by PCP/Cardiology Plan 1.Continue Symbicort 160 mcg 2 puffs BID; rinse mouth after each use 2. Continue Albuterol HFA prn; discussed indications for use 3.Order APAP 4-20 cm H20, machine and equipment (sent to [facility]) 4. [id number] 5. Request Chest Imaging from [facility] and [facility] 6. PFT at next OV 7.RTO in 3 months, sooner if needed Portions of this note may be dictated using voice recognition software and or use of a director medical affairs. Variances in spelling and vocabulary are possible and unintentional. Not all errors are caught/corrected . Please notify the author if any discrepancies are noted or if the meaning of any statement is not clear. This is a summary discussion with the patient and in no way is intended to be a verbatum summation of everything discussed. We apologize for any inconvenience. Not available 07/18/2024 19:33:57 Plan of Treatment Reminders Order Date Submit Date Provider Last Modified By Organization Details Last Modified Time Details Appointments FOLLOW_UP 2024 10:20A M Candi Ventura NP Not available Not available Not available Lab None recorded. Referral None recorded. Procedures home sleep testing (PROC) 2024 025 [email or web address] Vini Guerra DO ([facility]), [address], [place], [address], 07/28/2024 10:25:27 Surgeries None recorded. Imaging None recorded. Medication Orders Symbicort 160 mcg-4.5 mcg/actua tion HFA aerosol inhaler 2024 025 [facility] [id number], [address] , [place], [address], 07/14/2024 16:02:54 albuterol sulfate HFA 90 mcg/actua tion aerosol inhaler 2024 025 [facility] [id number], [address] , [place], [address], 07/14/2024 16:02:52 Patient TargetsNo targets recorded. Patient Instructions Encounter Date Encounter Id Patient Instructions Last Modified By Organization Details Last Modified Time 07/14/2024 [id number] medical record request* - Forward any chest x ray or chest ct [email or web address] Not available 07/28/2024 10:26:49 medical record request* - forward any chest x ray or chest ct results. thank you [email or web address] Not available 07/28/2024 10:26:58 Reason for Referral None Reported. Results Created Date Observation Date Name Description Value Unit Range Abnormal Flag Note LastModifiedBy Organization Detail LastModifiedTime 07/18/1909/21/2022 XR, chest , 1 view No observ ation record ed. [email or web address] [address] , [place], [address], 07/17/2024 16:42:26 07/18/19 25 07/14/2024 compl ete PFT* No observ ation record ed. [email or web address] Not Available 07/17 13:53:57 07/18/19 25 07/14/2024 fract ional exhal ed nitri c oxide * No observ ation record ed. [email or web address] Not Available 07/17 14:22:51 07/18/19 25 05/03/2020 XR, chest , 2 view No observ ation record ed. [email or web address] [address] , [place], [address], 07/17/2024 16:43:14 07/18/19 25 06/20/2016 XR, chest , 2 view No observ ation record ed. [address] , [place], [address], 07/17/2024 16:43:44 07/19/19 25 07/18/2024 home sleep testi ng (PROC ) No observ ation record ed. [email or web address] Not Available 07/18 09:40:00 Result Notes None recorded. Problems Name Problem SNOMED Code Status Onset Date Resolution Date Notes Provider Name and Address Organization Details Recorded Time Chronic obstructive pulmonary disease 70595937 Active 2024 elsa amezquita, [place] - [facility] 5 11:42:52 Hypoxia 411573432 Active 2024 [email or web address] marcos null, [place] - [facility] 5 15:17:00 Reactive airway disease 348676010557 Active 2024 Candi Ventura NP [address], [place], [address], [place] - [facility] 5 16:00:54 Hypersomnia 13017286 Active 2024 Candi Ventura NP [address], [place], [address], [place] - [facility] 16:16:48 Obstructive sleep apnea syndrome 03830128 Active 2024 Candi Ventura, G[place] [address], [place], [address], [place] - [facility] 19:34:06 Problem Notes None recorded. Procedures Surgical History Date Name Laterality Status Provider Name and Address Organization Details Recorded Time ligation of fallopian tube completed josse fam [place] - [facility] 03/24/2024 16:27:46 Total knee arthroplasty completed josse fam [place] - [facility] 03/25/2024 08:33:33 Hysterectomy completed josse fam [place] - [facility] 03/24/2024 16:28:03 bypass of stomach completed josse fam [place] - [facility] 03/24/2024 16:28:14 endoscopy completed josse fam [place] - [facility] 03/24/2024 16:28:19 cardiac catheterization completed josse fam [place] - [facility] 03/25/2024 08:32:57 Cholecystectomy completed josse fam [place] - [facility] 03/25/2024 08:33:16 Colonoscopy completed josse fam [place] - [facility] 03/25/2024 08:33:24 Cataract Surgery completed josse fam [place] - [facility] 07/14/2024 16:33:09 Imaging Results None recorded. Procedure Notes None recorded. Medical Equipment None Reported. Allergies Allergen ID Allergen Name Allergen Category Reaction Reaction Severity Criticality Documentation Date Start Date Code Code System Note Provider Name and Address Organization Details Recorded Time 25073 ropinirol e medicatio n Not available Not available Not available 07/14/2024 98636 RxNorm elsa priti amez[place], [place] - [facility] 15:26:11 Medications Name Sig Start Date Stop Date Status Note LastModified by Organization Details LastModified Time amoxicillin 500 mg capsule TAKE 1 CAPSULE BY MOUTH EVERY 12 HOURS FOR 7 DAYS 07/14 completed Not Available Not Available Not Available pramipexole 1 mg tablet TAKE ONE (1) TABLET EVERY DAY BY ORAL ROUTE. active Not Available Not Available No t Available gabapentin 600 mg tablet TAKE 1 TABLET BY MOUTH EVERY DAY active Not Available Not Available No t Available torsemide 20 mg tablet TAKE ONE (1) TABLET TWICE A DAY BY ORAL ROUTE. active Not Available Not Available No t Available metoprolol succinate ER 50 mg tablet,exte nded release 24 hr TAKE ONE (1) TABLET EVERY DAY BY ORAL ROUTE. active Not Available Not Available No t Available aspirin 81 mg tablet,joce yed release TAKE ONE (1) TABLET EVERY DAY BY ORAL ROUTE. active Not Available Not Available No t Available pantoprazol e 40 mg tablet,joce yed release TAKE ONE (1) TABLET EVERY DAY BY ORAL ROUTE. active Not Available Not Available No t Available albuterol sulfate HFA 90 mcg/actuati on aerosol inhaler Inhale 2 puffs every 4 hours by inhalatio n route for 30 days. 2024 active Not Available Not Available Not Avai lable metoclopram gabriella 10 mg tablet TAKE ONE (1) TABLET FOUR (4) TIMES A DAY BY ORAL ROUTE NEEDED FOR 14 DAYS. active Not Available Not Available No t Available rosuvastati n 10 mg tablet TAKE ONE (1) TABLET EVERY DAY BY ORAL ROUTE AT BEDTIME. active Not Available Not Available No t Available Symbicort 160 mcg-4.5 mcg/actuati on HFA aerosol inhaler Inhale 2 puffs twice a day by inhalatio n route for 30 days. 2024 active Not Available Not Available Not Avai lable Xarelto 20 mg tablet TAKE ONE (1) TABLET EVERY DAY BY ORAL ROUTE. active Not Available Not Available No t Available Spiriva Respimat 1.25 mcg/actuati on solution for inhalation INHALE TWO (2) PUFFS EVERY DAY BY INHALATIO N ROUTE. 07/14 completed Not Available Not Available Not Available Vitals Date Recorded Body height Respiratory rate Body mass index (BMI) Body weight Oxygen saturation Oxygen saturation in Arterial blood by Pulse oximetry Heart rate Body temperature Systolic blood pressure Diastolic blood pressure Provider Name and Address Organization Details Last Updated DateTime 5 165.1 cm 18 /min 44.4 kg/m2 190522. 44 g 97 % 97 % 80 /min 97.6 [degF] 182 mm[Hg] 66 mm[Hg] elsa marcos [facility] 5 15:31:14 Date Recorded Body height Body mass index (BMI) Body weight Oxygen saturation Oxygen saturation in Arterial blood by Pulse oximetry Heart rate Respiratory rate Body temperature Systolic blood pressure Diastolic blood pressure Provider Name and Address Organization Details Last Updated DateTime 5 165.1 cm 44.4 kg/m2 076254. 44 g 99 % 99 % 70 /min 20 /min 97.3 [degF] 152 mm[Hg] 100 mm[Hg] josse fam [facility] 5 15:48:59 Date Recorded Body height Body mass index (BMI) Body weight Oxygen saturation Oxygen saturation in Arterial blood by Pulse oximetry Heart rate Respiratory rate Body temperature Systolic blood pressure Diastolic blood pressure Provider Name and Address Organization Details Last Updated DateTime 5 165.1 cm 44.4 kg/m2 790171. 44 g 98 % 98 % 78 /min 18 /min 97.8 [degF] 172 mm[Hg] 86 mm[Hg] elsa marcos [facility] 5 09:10:56 Social History Question Answer Notes LastModified by Organizat ion Details LastModified Time Tobacco Smoking Status Former Smoker josse fam [facility] 03/25/2024 08:35:11 Do You Have An Advance Directive? No Information not available 03/25/2024 When Did You Quit Smoking? 16+yearssinc elastcigaret te [email or web address] Information not available 03/25/2024 Do You Have A Medical Power Of Security Patrol Officer? No [email or web address] Information not available 03/25/2024 What Was The Date Of Your Most Recent Tobacco Screening? 07/17/2024 [email or web address] Information not available 07/17/2024 What Is Your Current Pack Years? 10packyears [email or web address] Information not available 03/25/2024 What Is Your Relationship Status? [email or web address] Information not available 03/25/2024 At What Age Did You Start Smoking Tobacco? 15 [email or web address] Information not available 07/14/2024 Are There Any Smokers In Your House? No [email or web address] Information not available 03/25/2024 How Much Tobacco Do You Smoke? No [email or web address] Information not available 03/25/2024 Has Tobacco Cessation Counseling Been Provided? No [email or web address] Information not available 07/14/2024 How Many Years Have You Smoked Tobacco? 3 Information not available 03/25/2024 Have You Recently Traveled Abroad? No [email or web address] Information not available 03/25/2024 Are You Currently In School? No Information not available 03/25/2024 Sex: Unknown Functional Status Question Answer Note LastModified by Organizat ion Details LastModified Time Do you or have you ever used any other forms of tobacco or nicotine? 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 Family History Relationship Description Onset Age of this Age Resolved Age Notes LastModified by Organization Details LastModified Time Sister Malignant tumor of breast [email or web address] Not available 03/25 08:38:17 Sister History of thrombosis [email or web address] Not available 03/2024 16:29:42 Sister Chronic obstructive pulmonary disease [email or web address] Not available 07/14 16:30:40 Sister Restless legs [email or web address] Not available 07/14 16:31:03 Mother Diabetes mellitus [email or web address] Not available 03/25 08:38:31 Mother Hypothyroidi sm Not available 03/25 08:38:38 Mother History of thrombosis [email or web address] Not available 03/2024 16:29:42 Mother Malignant neoplastic disease [email or web address] Not available 07/14 16:30:30 Mother Chronic obstructive pulmonary disease [email or web address] Not available 07/14 16:30:40 Mother Heart disease [email or web address] Not available 07/14 16:30:51 Father Heart disease Not available 03/25 08:38:45 Father Myocardial infarction [email or web address] Not available 03/15 08:38:56 Paternal Grandmother Chronic obstructive pulmonary disease [email or web address] Not available 07/14 16:31:12 Paternal Grandmother Pulmonary emphysema [email or web address] Not available 07/14 16:31:36 Medical History Condition Response Obesity Y Anemia Y Arthritis Y High Cholesterol Y Acid Reflux (GERD) Y Heart Disease Hypertension Y Depression Y COPD Y Gynecological HistoryNo gynecological history recorded. Obstetrics History GPAL:G 0 P 0 0 0 0 Past Encounters Encounter ID Performer Location Encounter Start Date Encounter Closed Date Diagnosis/Indication Diagnosis SNOMED-CT Code Diagnosis ICD10 Code Diagnosis Note [id number] Wilfredo Zamudio [address] [place] [address] [place] [address] 0 07/14/2024 15:18:57 07/14/2024 16:27:39 Reactive airway disease 5914564466 06 J45.909 Hypersomnia 78655736 G47 .10 Chronic ob structive pulmonary disease 14193178 J44.9 Hypoxia 468106265 R09.02 [id number] Wilfredo Zamudio [address] [place] [address] [place] [address] 0 07/17/2024 15:41:55 07/17/2024 15:52:53 [id number] Wilfredo Zamudio [address] [place] [address] [place] [address] 0 07/18/2024 09:10:12 07/18/2024 09:30:48 Reactive airway disease 2720923657 06 J45.909 Hypersomnia 32465202 G47 .10 Chronic ob structive pulmonary disease 11985522 J44.9 Hypoxia 151130733 R09.02 Obstructiv e sleep apnea syndrome 36645610 G47.33 Health Concerns Section Related Observation LastModified by Organization Detai ls LastModified Time None Recorded Concern Status LastModified by Organization Details LastModified Time None Recorded Advance Directives Directive N: Payers Insurance Date Sequence Insurance Name Policy Number Policy Flanagan Covered Member ID Flanagan Member ID Guarantor Name 07/21/2024 1 [employer] (MEDICARE REPLACEMENT/ ADVANTAGE - PPO) María Bucio [id number] María Bucio Notes Date Note Type Note Provider Name and Address Organization Details Recorded Time 07/14/2024 text/html This 68 year-old female presents to the office as a new patient for the evaluation of COPD. She was previously seen by Dr. Diane years ago per patient.Patient reports a history of COPD. Today she complains of shortness of breath with exertion, wheezing, and a non productive cough. Patient reports symptoms have increased in severity over the past 6 months. She uses Albuterol inhaler 7 8 times per day, and previously used Spiriva but it is no longer covered by her insurance.Patient has an appointment 08/26/2024 with a vascular surgeon at [facility] for lymphedema to bilateral lower extremities. She denies current tobacco use but has a history of smoking, having quit in 1976 after 3 years. She has residential exposure to a dog and cat. The patient reports hypersomnia, and frequent naps. She does not sleep well and snores. Denies any inheritable lung diseases. Denies any n/v/d/f/c Candi Ventura NP [address], [place], [address], [facility] 07/17/2024 08:06:43 07/17/2024 text/html no evaluation completed. patient returned hst with limited time and was sent home to repeat. Candi Ventura NP [address], [place], [address], [facility] 07/19/2024 18:26:45 07/18/2024 text/html This 68 year-old female returns to the office today to discuss the results of the HST.Since the last visit the patient reports no significant medical events. Home sleep study performed on 07/18/2024 that revealed mild obstructive sleep apnea with AHI: 9.4, sleep-related hypoxia with a kirill of 79%, and maximum heart rate 92. I discussed the results of the study with the patient and proposed treatment plan. Denies any n/v/d/f/c. Candi Ventura NP [address], [place], [address], [facility] 07/18/2024 19:37:21 OBGyn Episode No OBEpisode recorded.
--- OUTSIDE RECORDS SUMMARY | 2024-08-13 10:44 | XMS_ITS | Continuity of Care Document ---
Author Organization [facility] [place], [place] OFFICE Address [address] [place] [address] [place] [address] Care Team Providers Care Electronic Calibration Technician Name Role Phone LUIS EDUARDO NIEVES Primary Care Provider [phone] HANNAH ROMERO Urinalysis Technician [phone] Assessment Encounter Date Assessment Date Assessment LastModified by Organization Details LastModified Time 07/18/2024 07/18/2024 Assessment 1. COPD-self reported *PFT [...] machine and equipment (sent to [facility]) 4. [id number] 5. Request Chest Imaging from [facility] and [facility] 6. PFT at next OV 7.RTO in 3 months, sooner if needed Portions of this note may be dictated using voice recognition software and or use of a medical device engineer. Variances in spelling and vocabulary are possible and unintentional. Not all errors are caught/corrected . Please notify the author if any discrepancies are noted or if the meaning of any statement is not clear. This is a summary discussion with the patient and in no way is intended to be a verbatum summation of everything discussed. We apologize for any inconvenience. [email or web address] Not available 07/18/2024 19:33:57 Plan of Treatment Reminders Order Date Submit Date Provider Last Modified By Organization Details Last Modified Time Details Appointments FOLLOW _UP 025 10:20AM Candi Ventura NP Not available Not available Not available Lab None record ed. Referral None record ed. Procedures None record ed. Surgeries None record ed. Imaging None record ed. Medication Orders None record ed. Patient TargetsNo targets recorded. Patient InstructionsNo instructions recorded. Reason for Referral None Reported. Results Created Date Observation Date Name Description Value Unit Range Abnormal Flag Note LastModifiedBy Organization Detail LastModifiedTime 07/18/19 25 09/21/2022 XR, chest , 1 view No observ ation record ed. [email or web address] [place] [address] , [place], [address], 07/17/2024 16:42:26 07/18/19 25 07/14/2024 compl ete PFT* No observ ation record ed. [email or web address] Not Available 07/17 13:53:57 07/18/19 25 07/14/2024 fract ional exhal ed nitri c oxide * No observ ation record ed. [email or web address] Not Available 07/17 14:22:51 07/18/19 25 05/03/2020 XR, chest , 2 view No observ ation record ed. [email or web address] [address] , [place], [address], 07/17/2024 16:43:14 07/18/19 25 06/20/2016 XR, chest , 2 view No observ ation record ed. [email or web address] [address] , [place], [address], 07/17/2024 16:43:44 07/19/19 25 07/18/2024 home sleep testi ng (PROC ) No observ ation record ed. [email or web address] Not Available 07/18 09:40:00 Result Notes None recorded. Problems Name Problem SNOMED Code Status Onset Date Resolution Date Notes Provider Name and Address Organization Details Recorded Time Chronic obstructive pulmonary disease 41787919 Active 2024 elsa priti null, [place] - [facility] 11:42:52 Hypoxia 267914291 Active 2024 elsa priti null[place] [facility] 15:17:00 Reactive airway disease 581744499292 Active 2024 Candi Ventura NP [address], [place], [address], [place] [facility] 16:00:54 Hypersomnia 02218627 Active 2024 Candi Ventura NP [address], [place], [address], [place] [facility] 16:16:48 Obstructive sleep apnea syndrome 86527973 Active 2024 Candi Ventura NP [address], [place], [address], [place] [facility] [...] 03/25/2024 08:33:24 Cataract Surgery completed josse fam [place] - [facility] 07/14/2024 16:33:09 Imaging Results None recorded. Procedure Notes None recorded. Medical Equipment None Reported. Allergies Allergen ID Allergen Name Allergen Category Reaction Reaction Severity Criticality Documentation Date Start Date Code Code System Note Provider Name and Address Organization Details Recorded Time 73432 ropinirol e medicatio n Not available Not available Not available 07/14/2024 27184 RxNorm elsa marcos bia, [place] - [facility] [...] Not Available Vitals Date Recorded Body height Body mass index (BMI) Body weight Oxygen saturation Oxygen saturation in Arterial blood by Pulse oximetry Heart rate Respiratory rate Body temperature Systolic blood pressure Diastolic blood pressure Provider Name and Address Organization Details Last Updated DateTime 5 165.1 cm 44.4 kg/m2 368303. 44 g 98 % 98 % 78 /min 18 /min 97.8 [degF] 172 mm[Hg] 86 mm[Hg] elsa marcos [place] - [facility] 09:10:56 Social History Question Answer Notes LastModified by Organizat ion Details LastModified Time Tobacco Smoking Status Former Smoker josse amezquita [place] [facility] 03/25/2024 08:35:11 Do You Have An Advance Directive? No [email or web address] Information not available 03/25/2024 When Did You Quit Smoking? 16+yearssinc elastcigaret te [email or web address] Information not available 03/25/2024 Do You Have A Medical Power Of Lumber Trimmer? No Information not available 03/25/2024 What Was The Date Of Your Most Recent Tobacco Screening? 07/17/2024 [email or web address] Information not available 07/17/2024 What Is Your Current Pack Years? 10packyears [email or web address] Information not available 03/25/2024 What Is Your Relationship Status? [email or web address] Information not available 03/25/2024 At What Age Did You Start Smoking Tobacco? 15 [email or web address] Information not available 07/14/2024 Are There Any Smokers In Your House? No Information not available 03/25/2024 How Much Tobacco Do You Smoke? No [email or web address] Information not available 03/25/2024 Has Tobacco Cessation Counseling Been Provided? No [email or web address] Information not available 07/14/2024 How Many Years Have You Smoked Tobacco? 3 [email or web address] Information not available 03/25/2024 Have You Recently Traveled Abroad? No [email or web address] Information not available 03/25/2024 Are You Currently In School? No Information not available 03/25/2024 Sex: Unknown Functional Status Question Answer Note LastModified by Organizat ion Details LastModified Time Do you or have you ever used any other forms of tobacco or nicotine? 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 Family History Relationship Description Onset Age of this Age Resolved Age Notes LastModified by Organization Details LastModified Time Sister Malignant tumor of breast [email or web address] Not available 03/25 08:38:17 Sister History of thrombosis [email or web address] Not available 03/2024 16:29:42 Sister Chronic obstructive pulmonary disease [email or web address] Not available 07/14 16:30:40 Sister Restless legs [email or web address] Not available 07/14 16:31:03 Mother Diabetes mellitus [email or web address] Not available 03/25 08:38:31 Mother Hypothyroidi sm Not available 03/25 08:38:38 Mother History of thrombosis [email or web address] Not available 03/2024 16:29:42 Mother Malignant neoplastic disease [email or web address] Not available 07/14 16:30:30 Mother Chronic obstructive pulmonary disease [email or web address] Not available 07/14 16:30:40 Mother Heart disease [email or web address] Not available 07/14 16:30:51 Father Heart disease [email or web address] Not available 03/25 08:38:45 Father Myocardial infarction [email or web address] Not available 03/15 08:38:56 Paternal Grandmother Chronic obstructive pulmonary disease [email or web address] Not available 07/14 16:31:12 Paternal Grandmother Pulmonary emphysema [email or web address] Not available 07/14 16:31:36 Medical History Condition [...] SNOMED-CT Code Diagnosis ICD10 Code Diagnosis Note [id number] Wilfredo Zamudio [address] BRAGG [address] [place] [address] 0 07/14/2024 15:18:57 07/14/2024 16:27:39 Reactive airway disease 3429885444 06 J45.909 Hypersomnia 73334106 G47 .10 Chronic ob structive pulmonary disease 19457704 J44.9 Hypoxia 506331015 R09.02 [id number] Wilfredo Zamudio [address] BRAGG [address] [place] [address] 0 07/17/2024 15:41:55 07/17/2024 15:52:53 [id number] Wilfredo Zamudio [address]AG[address] [place] [address] 0 07/18/2024 09:10:12 07/18/2024 09:30:48 Reactive airway disease 8275169318 06 J45.909 Hypersomnia 51164937 G47 .10 Chronic ob structive pulmonary disease 88087181 J44.9 Hypoxia 329738817 R09.02 Obstructiv e sleep apnea syndrome 27709952 G47.33 Health Concerns Section Related Observation LastModified by Organization Detai ls LastModified Time None Recorded Concern Status LastModified by Organization Details LastModified Time None Recorded Payers Encounter Date Sequence Insurance Name Policy Number Policy Flanagan Covered Member ID Flanagan Member ID Guarantor Name 07/18/2024 1 [employer] (MEDICARE REPLACEMENT/ ADVANTAGE - PPO) María Bucio [id number] María Bucio Notes Date Note Type Note Provider Name and Address Organization Details Recorded Time 07/18/2024 text/html This 68 year-old female returns [...] Ventura NP [address], [place], [address], [facility] 07/18/2024 19:37:21 OBGyn Episode No OBEpisode recorded.
--- OUTSIDE RECORDS SUMMARY | 2024-08-13 10:44 | XMS_ITS | Continuity of Care Document ---
Author Organization [facility] [place], [place] OFFICE Address [address]AGG [address] [place] [address] Care Team Providers Care Shearing Shed Worker Name Role Phone LUIS EDUARDO NIEVES Primary Care Provider HANNAH ROMERO Picture Painter [phone] Assessment No assessment recorded. Plan of Treatment Reminders Order Date Submit [...] 1 view No observ ation record ed. [email or web address] [facility] [address] [facility] , [place], [address], 07/17/2024 16:42:26 07/18/19 25 07/14/2024 compl ete PFT* No observ ation record ed. [email or web address] Not Available 07/17 13:53:57 07/18/19 25 07/14/2024 fract ional exhal ed nitri c oxide * No observ ation record ed. [email or web address] Not Available 07/17 14:22:51 07/18/19 25 05/03/2020 XR, chest , 2 view No observ ation record ed. [email or web address] [address] , [place], [address], 07/17/2024 16:43:14 07/18/19 25 06/20/2016 XR, chest , 2 view No observ ation record ed. [email or web address] [address] , [place], [address], 07/17/2024 16:43:44 07/19/19 25 07/18/2024 home sleep testi ng (PROC ) No observ ation record ed. [email or web address] Not Available 07/18 09:40:00 Result Notes None recorded. Problems Name Problem SNOMED Code Status Onset Date Resolution Date Notes Provider Name and Address Organization Details Recorded Time Chronic obstructive pulmonary disease 05423327 Active 2024 elsa priti null, [place] - [facility] 5 11:42:52 Hypoxia 242679485 Active 2024 elsa priti null[place] [facility] 5 15:17:00 Reactive airway disease 801053967126 Active 2024 Candi Ventura NP [address], [place], [address], [place] [facility] 16:00:54 Hypersomnia 96517120 Active 2024 Candi Ventura NP [address], [place], [address], [place] [facility] 5 16:16:48 Obstructive sleep apnea syndrome 94474734 Active 2024 Candi Ventura NP [address], [place], [address], [place] [facility] 5 19:34:06 Problem Notes None recorded. Procedures Surgical History Date Name Laterality Status Provider Name and Address Organization Details Recorded Time ligation of fallopian tube completed josse fam [place] [facility] 03/24/2024 16:27:46 Total knee arthroplasty completed josse fam [place] [facility] 03/25/2024 08:33:33 Hysterectomy completed josse sarwat [place] [facility] 03/24/2024 16:28:03 bypass of stomach completed josse sarwat [place] [facility] 03/24/2024 16:28:14 endoscopy completed jossejerson fam [place] [facility] 03/24/2024 16:28:19 cardiac catheterization completed jossejerson fam [place] [facility] 03/25/2024 08:32:57 Cholecystectomy completed josse sarwat [place] [facility] 03/25/2024 08:33:16 Colonoscopy completed josse fam [place] [facility] 03/25/2024 08:33:24 Cataract Surgery completed josse sarwat [place] [facility] 07/14/2024 16:33:09 Imaging Results None recorded. Procedure Notes None recorded. Medical Equipment None Reported. Allergies Allergen ID Allergen Name Allergen Category Reaction Reaction Severity Criticality Documentation Date Start Date Code Code System Note Provider Name and Address Organization Details Recorded Time 84662 ropinirol e medicatio n Not available Not available Not available 07/14/2024 88210 RxNorm elsa priti amezquita, [place] - [facility] [...] Updated DateTime 5 165.1 cm 44.4 kg/m2 243097. 44 g 99 % 99 % 70 /min 20 /min 97.3 [degF] 152 mm[Hg] 100 mm[Hg] josse fam [facility] 5 15:48:59 Date Recorded Body height Body mass index (BMI) Body weight Oxygen saturation Oxygen saturation in Arterial blood by Pulse oximetry Heart rate Respiratory rate Body temperature Systolic blood pressure Diastolic blood pressure Provider Name and Address Organization Details Last Updated DateTime 5 165.1 cm 44.4 kg/m2 418500. 44 g 98 % 98 % 78 /min 18 /min 97.8 [degF] 172 mm[Hg] 86 mm[Hg] elsa marcos [place] - [facility] 09:10:56 Social History Question Answer Notes LastModified by Organizat ion Details LastModified Time Tobacco Smoking Status Former Smoker josse fam bia, [facility] 03/25/2024 08:35:11 Do You Have An Advance Directive? No [email or web address] Information not available 03/25/2024 When Did You Quit Smoking? 16+yearssinc elastcigaret te [email or web address] Information not available 03/25/2024 Do You Have A Medical Power Of Electrification Adviser? No [email or web address] Information not available 03/25/2024 What Was The Date Of Your Most Recent Tobacco Screening? 07/17/2024 [email or web address] Information not available 07/17/2024 What Is Your Current Pack Years? 10packyears [email or web address] Information not available 03/25/2024 What Is Your Relationship Status? [email or web address] Information not available 03/25/2024 At What Age Did You Start Smoking Tobacco? 15 [email or web address] Information not available 07/14/2024 Are There Any Smokers In Your House? No [email or web address] Information not available 03/25/2024 How Much Tobacco Do You Smoke? No Information not available 03/25/2024 Has Tobacco Cessation Counseling Been Provided? No [email or web address] Information not available 07/14/2024 How Many Years Have You Smoked Tobacco? 3 [email or web address] Information not available 03/25/2024 Have You Recently Traveled Abroad? No [email or web address] Information not available 03/25/2024 Are You Currently In School? No [email or web address] Information not available 03/25/2024 Sex: Unknown Functional Status Question Answer Note LastModified by Organizat ion Details LastModified Time Do you or have you ever used any other forms of tobacco or nicotine? 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 Family History Relationship Description Onset Age of this Age Resolved Age Notes LastModified by Organization Details LastModified Time Sister Malignant tumor of breast [email or web address] Not available 03/25 08:38:17 Sister History of thrombosis [email or web address] Not available 03/2024 16:29:42 Sister Chronic obstructive pulmonary disease [email or web address] Not available 07/14 16:30:40 Sister Restless legs Not available 07/14 16:31:03 Mother Diabetes mellitus [email or web address] Not available 03/25 08:38:31 Mother Hypothyroidi sm [email or web address] Not available 03/25 08:38:38 Mother History of thrombosis [email or web address] Not available 03/2024 16:29:42 Mother Malignant neoplastic disease [email or web address] Not available 07/14 16:30:30 Mother Chronic obstructive pulmonary disease [email or web address] Not available 07/14 16:30:40 Mother Heart disease Not available 07/14 16:30:51 Father Heart disease [email or web address] Not available 03/25 08:38:45 Father Myocardial infarction Not available 03/15 08:38:56 Paternal Grandmother Chronic obstructive pulmonary disease [email or web address] Not available 07/14 16:31:12 Paternal Grandmother Pulmonary emphysema [email or web address] Not available 07/14 16:31:36 Medical History Condition [...] SNOMED-CT Code Diagnosis ICD10 Code Diagnosis Note [id number] Wilfredo Zamudio DO [place] [facility] [address] [place] [address] [address] [place] [address] 07/14/2024 15:18:57 07/14/2024 16:27:39 Reactive airway disease 1987464863 06 J45.909 Hypersomnia 04754716 G47 .10 Chronic ob structive pulmonary disease 51292347 J44.9 Hypoxia 694222509 R09.02 [id number] Wilfredo Zamudio DO [place] [facility] [address] [place] [address] 07/17/2024 15:41:55 07/17/2024 15:52:53 Health Concerns Section Related Observation LastModified by Organization Detai ls LastModified Time None Recorded Concern Status LastModified by Organization Details LastModified Time None Recorded Payers Encounter Date Sequence Insurance Name Policy Number Policy Flanagan Covered Member ID Flanagan Member ID Guarantor Name 07/17/2024 1 [employer] (MEDICARE REPLACEMENT/ ADVANTAGE - PPO) María Bucio [id number] María Bucio Notes Date Note Type Note Provider Name and Address Organization Details Recorded Time 07/17/2024 text/html no evaluation completed. patient returned hst with limited time and was sent home to repeat. Candi Ventura NP [address], [place], [address], [employer] [facility] 07/19/2024 18:26:45 07/18/2024 [...] Ventura NP [address], [place], [address], [employer] - [facility] 07/18/2024 19:37:21 OBGyn Episode No OBEpisode recorded.
--- OUTSIDE RECORDS SUMMARY | 2024-08-13 10:44 | XMS_ITS | Clinical Summary ---
Author Organization [facility] Address [address] [place] [address] [place] [address] Phone Care Team Providers Care Nylon Winder Name Role Phone Unavailable Primary Care Provider Unavailabl e Allergies Active Allergy Reactions Criticality Noted Date Comments Ropinirole Nausea And Vomiting 01/01/2023 Medications sotaloL (BETAPACE) 80 mg Oral Tablet 06/12/2024 Active rosuvastatin (CRESTOR) 10 mg Oral Tablet Take 10 mg by mouth nightly. 10/20/2022 Active pramipexole (MIRAPEX) 1 mg Oral Tablet 06/10/2016 Active metoclopramide HCl (GIMOTI) 15 mg/spray Nasl spray with pump 1 [place] by Nasal route. 01/24/2024 Active gabapentin (NEURONTIN) 600 mg Oral Tablet Take 600 mg by mouth daily. 04/24/2024 Active aspirin 81 mg Oral Tablet, Delayed Release (E.C.) Take 81 mg by mouth daily. Active ELIQUIS 5 mg Oral Tablet 07/15/2024 Active albuterol (PROVENTIL HFA;VENTOLIN HFA) 90 mcg/actuation Inhl HFA Aerosol Inhaler Inhale 2 Puffs into the lungs. Active Active Problems Problem Noted Date Diagnosed Date Venous stasis ulcer limited to breakdown of skin with varicose veins 08/06/2024 Encounters Date Type Department Care Team Description 08/06/2024 9:00 AM EDT Clinical Support [facility] [address] [place], [place] [id number] Venous stasis ulcer of other part of right lower leg limited to breakdown of skin with varicose veins (HCC) (Primary Dx) 07/17/2024 Telephone [facility] [address] [place] [address] Bryant Ortiz MD Follow-up 07/15/2024 2:30 PM EDT Office Visit [facility] [address] [facility] [address] [place] [address] Marah Mccormick PA-C Venous stasis ulcer of other part of right lower leg limited to breakdown of skin with varicose veins (HCC) (Primary Dx); Lymphedema from Last 3 Months Surgical History Surgery Date Site/Laterality Comments TUBAL LIGATION 02/13/1984 - 02/11/1985 CHOLECYSTECTOMY 02/12/1995 - 02/12/1996 Social History Tobacco Use Types Packs/Day Years [...] on file Sexual Orientation Not on file Obstetrics History Last Filed Vital Signs Vital Sign Reading [...] - - Body Mass Index - - Plan of Treatment Upcoming Encounters Date Type Department Care Team (Late st Contact Info) Description 08/14/2024 2:30 PM EDT Office Visit [facility] [address] [facility] [address] [place] [address] Corby Treadwell MD [address] [facility] [address] [place] [address] Health Maintenance Due Date Last Done Comments Wellness Exam Medicare 10/04/1958 Hepatitis C Screening 1974 Breast Cancer Screening 1996 Cologuard 2001 Colon Cancer Screening 2001 Colonoscopy 2001 FIT 2001 Sigmoidoscopy 2001 Virtual Colonography 2001 Zoster (1 of 2) 2006 Bone Density Screening 2021 DTaP/TDaP/Td (2 - Td or Tdap) 12/03/2021 12/04/2011 COVID-19 Vaccine ( season) 2023 Influenza Vaccine Completed 12/25/2023, , 11/18/2018, Additional history exists Pneumococcal Vaccine 50+ Completed 024, 11/16/2017, 11/15/2015, Additional history exists Hepatitis B Vaccine Aged Out No longe r eligible based on patient's age to complete this topic Meningococcal B Vaccine Aged Out No l onger eligible based on patient's age to complete this topic Insurance [employer] MEDICARE PPO MR
--- OUTSIDE RECORDS SUMMARY | 2024-08-13 10:44 | XMS_ITS | Continuity of Care Document ---
Author Organization [facility] [place], [place] OFFICE Address [address] [place] [address] [place] [id number] Care Team Providers Care Concrete Float Maker Name Role Phone LUIS EDUARDO NIEVES Primary Care Provider [phone] HANNAH ROMERO Prehemmer Assessment Encounter Date Assessment Date Assessment LastModified [...] the disease. I explained common symptoms and exterminator helper termite effects of the disease. We discussed diagnostic and treatment options as well as realistic expectations with treatment. 4. A1AT *The patient underwent genomic testing for uddqq-[id number] sin deficiency in the office today. Oral swab specimen was obtained by the nurse and sent to the lab for testing. 5. Request Chest Imaging from [facility] and [facility] 6. RTO after HST completed The patient [...] recognition software and or use of a manager of medical. Variances in spelling and vocabulary are possible [...] apologize for any inconvenience. [email or web address] Not available 07/17/2024 08:05:25 Plan of Treatment Reminders Order Date Submit Date Provider Last Modified By Organization Details Last Modified Time Details Appointments FOLLOW_UP 2024 10:20A M Candi Ventura NP Not available Not available Not available Lab None recorded. Referral None recorded. Procedures home sleep testing (PROC) 2024 025 [email or web address] Vini Guerra DO ([facility]), [address] [facility] [address], [place], [address], 07/28/2024 10:25:27 Surgeries None recorded. Imaging None recorded. Medication Orders Symbicort 160 mcg-4.5 mcg/actua tion HFA aerosol inhaler 2024 025 [facility] [id number], [address] [facility] , [place], [address], 07/14/2024 16:02:54 albuterol sulfate HFA 90 mcg/actua tion aerosol inhaler 2024 025 [facility] [id number], [address] [facility] , [place], [address], 07/14/2024 16:02:52 Patient TargetsNo targets recorded. Patient Instructions Encounter Date Encounter Id Patient Instructions Last Modified By Organization Details Last Modified Time 07/14/2024 [id number] medical record request* - Forward any chest x ray or chest ct Not available 07/28/2024 10:26:49 medical record request* - forward any chest x ray or chest ct results. thank you [email or web address] Not available 07/28/2024 10:26:58 Reason for Referral None Reported. Results Created Date Observation Date Name Description Value Unit Range Abnormal Flag Note LastModifiedBy Organization Detail LastModifiedTime 07/18/1909/21/2022 XR, chest , 1 view No observ ation record ed. [email or web address] [address] , [place], [address], 07/17/2024 16:42:26 07/18/19 25 07/14/2024 compl ete PFT* No observ ation record ed. [email or web address] Not Available 07/17 13:53:57 07/18/19 25 07/14/2024 fract ional exhal ed nitri c oxide * No observ ation record ed. [email or web address] Not Available 07/17 14:22:51 07/18/19 25 05/03/2020 XR, chest , 2 view No observ ation record ed. [email or web address] [address], [place], [address], 07/17/2024 16:43:14 07/18/19 25 06/20/2016 XR, chest , 2 view No observ ation record ed. [address] [place], [place], [address], 07/17/2024 16:43:44 07/19/19 25 07/18/2024 home sleep testi ng (PROC ) No observ ation record ed. [email or web address] Not Available 07/18 09:40:00 Result Notes None recorded. Problems Name Problem SNOMED Code Status Onset Date Resolution Date Notes Provider Name and Address Organization Details Recorded Time Chronic obstructive pulmonary disease 82621231 Active 2024 RENEE diamond - [facility] 11:42:52 Hypoxia 067085395 Active 2024 elsa marcos null, [place] - [facility] 15:17:00 Reactive airway disease 421735648427 Active 2024 Candi Ventura NP [address], [place], [address], [place] - [facility] 16:00:54 Hypersomnia 78330938 Active 2024 Candi Ventura NP [address], [place], [address], [place] - [facility] 16:16:48 Obstructive sleep apnea syndrome 73679717 Active 2024 Candi Ventura NP [address], [place], [address], [place] - [facility] 19:34:06 Problem Notes None recorded. Procedures Surgical History Date Name Laterality Status Provider Name and Address Organization Details Recorded Time ligation of fallopian tube completed josse fam [place] - [facility] 03/24/2024 16:27:46 Total knee arthroplasty completed josse fam [place] - [facility] 03/25/2024 08:33:33 Hysterectomy completed josse D[place] - [facility] 03/24/2024 [...] Speci 03/25/2024 08:33:24 Cataract Surgery completed josse DURAN - [facility] 07/14/2024 16:33:09 Imaging Results None recorded. Procedure Notes None recorded. Medical Equipment None Reported. Allergies Allergen ID Allergen Name Allergen Category Reaction Reaction Severity Criticality Documentation Date Start Date Code Code System Note Provider Name and Address Organization Details Recorded Time 57147 ropinirol e medicatio n Not available Not available Not available 07/14/2024 87727 RxNorm elsa priti amezquita [facility] 15:26:11 Medications Name [...] and Address Organization Details Last Updated DateTime 165.1 cm 18 /min 44.4 kg/m2 788855. 44 g 97 % 97 % 80 /min 97.6 [degF] 182 mm[Hg] 66 mm[Hg] elsa marcos [facility] 15:31:14 Date Recorded Body height Body mass index (BMI) Body weight Oxygen saturation Oxygen saturation in Arterial blood by Pulse oximetry Heart rate Respiratory rate Body temperature Systolic blood pressure Diastolic blood pressure Provider Name and Address Organization Details Last Updated DateTime 165.1 cm 44.4 kg/m2 552296. 44 g 99 % 99 % 70 /min 20 /min 97.3 [degF] 152 mm[Hg] 100 mm[Hg] [facility] 15:48:59 Social History Question Answer Notes LastModified by Organizat ion Details LastModified Time Tobacco Smoking Status Former Smoker josse fam [facility] 03/25/2024 08:35:11 Do You Have An Advance Directive? No [email or web address] Information not available 03/25/2024 When Did You Quit Smoking? 16+yearssinc elastcigaret te [email or web address] Information not available 03/25/2024 Do You Have A Medical Power Of High School Teacher? No [email or web address] Information not available 03/25/2024 What Was The Date Of Your Most Recent Tobacco Screening? 07/17/2024 [email or web address] Information not available 07/17/2024 What Is Your Current Pack Years? 10packyears [email or web address] Information not available 03/25/2024 What Is Your Relationship Status? [email or web address] Information not available 03/25/2024 At What Age Did You Start Smoking Tobacco? 15 [email or web address] Information not available 07/14/2024 Are There Any Smokers In Your House? No [email or web address] Information not available 03/25/2024 How Much Tobacco Do You Smoke? No Information not available 03/25/2024 Has Tobacco Cessation Counseling Been Provided? No [email or web address] Information not available 07/14/2024 How Many Years Have You Smoked Tobacco? 3 [email or web address] Information not available 03/25/2024 Have You Recently Traveled Abroad? No [email or web address] Information not available 03/25/2024 Are You Currently In School? No [email or web address] Information not available 03/25/2024 Sex: Unknown Functional Status Question Answer Note LastModified by Organizat ion Details LastModified Time Do you or have you ever used any other forms of tobacco or nicotine? 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 Family History Relationship Description Onset Age of this Age Resolved Age Notes LastModified by Organization Details LastModified Time Sister Malignant tumor of breast Not available 03/25 08:38:17 Sister History of thrombosis Not available 03/2024 16:29:42 Sister Chronic obstructive pulmonary disease [email or web address] Not available 07/14 16:30:40 Sister Restless legs [email or web address] Not available 07/14 16:31:03 Mother Diabetes mellitus Not available 03/25 08:38:31 Mother Hypothyroidi sm Not available 03/25 08:38:38 Mother History of thrombosis [email or web address] Not available 03/2024 16:29:42 Mother Malignant neoplastic disease [email or web address] Not available 07/14 16:30:30 Mother Chronic obstructive pulmonary disease Not available 07/14 16:30:40 Mother Heart disease [email or web address] Not available 06/02 /2025 16:30:51 Father Heart disease [email or web address] Not available 03/25 08:38:45 Father Myocardial infarction [email or web address] Not available 03/15 08:38:56 Paternal Grandmother Chronic obstructive pulmonary disease [email or web address] Not available 07/14 16:31:12 Paternal Grandmother Pulmonary emphysema [email or web address] Not available 07/14 16:31:36 Medical History Condition [...] SNOMED-CT Code Diagnosis ICD10 Code Diagnosis Note [id number] Wilfredo Zamudio DO [place] [facility] [address] [place] [address] DR BRAGG [address] [place] [phone] 07/14/2024 15:18:57 07/14/2024 16:27:39 Reactive airway disease 9455828640 06 J45.909 Hypersomnia 95867841 G47 .10 Chronic ob structive pulmonary disease 41337604 J44.9 Hypoxia 693291255 R09.02 Health Concerns Section Related Observation LastModified by Organization Detai ls LastModified Time None Recorded Concern Status LastModified by Organization Details LastModified Time None Recorded Payers Encounter Date Sequence Insurance Name Policy Number Policy Flanagan Covered Member ID Flanagan Member ID Guarantor Name 07/14/2024 1 [employer] (MEDICARE REPLACEMENT/ ADVANTAGE - PPO) María Bucio [id number] María Bucio Notes Date Note Type Note [...] appointment 08/26/2024 with a vascular surgeon at [place] for lymphedema to bilateral lower extremities. She denies current tobacco use but has a history of smoking, having quit in 1976 after 3 years. She has residential exposure to a dog and cat. The patient reports hypersomnia, and frequent naps. She does not sleep well and snores. Denies any inheritable lung diseases. Denies any n/v/d/f/c Candi Ventura NP [address], [place], [address], [email or web address] 07/17/2024 08:06:43 07/17/2024 text/html no evaluation completed. patient returned hst with limited time and was sent home to repeat. Candi Ventura NP [address], [place], [address], [email or web address] 07/19/2024 18:26:45 OBGyn Episode No OBEpisode recorded.
--- OUTSIDE RECORDS SUMMARY | 2024-08-13 10:44 | XMS_ITS | Encounter Summary ---
Author [place] [address] Care Team Providers Care Pecan Sheller Name Role Phone Unavailable Primary Care Provider Unavailabl e Reason for Visit * Reason Onset Date Comments Follow-up 07/17/2024 Encounter Details Date Type Department Care Team (Late Contact Info) Description 07/17/2024 Telephone [facility] [address] [place] [address] Bryant Ortiz MD [address] [place] [address] Follow-up Social History Tobacco Use Types Packs/Day Years [...] on file documented as of this encounter Miscellaneous Notes * Telephone Encounter - Fern Jimenez - 07/17/2024 12:49 PM EDT Spoke with patient about $330 outpatient surgery co-pay. I explained that this could be assessed per visit depending upon the treatment received. I also told patient that [facility] has financial assistanceprograms to look in to. Pt verbalized understanding. documented in this encounter Plan of Treatment Upcoming Encounters Date Type Department Care Team (Late Contact Info) Description 08/14/2024 2:30 PM EDT Office Visit [facility] [place] [address] [place] [address] Corby Treadwell MD [address] [facility] [place] [address] [place] [address] documented as of this encounter Visit Diagnoses Not on filedocumented in this encounter
--- OUTSIDE RECORDS SUMMARY | 2024-08-13 10:44 | XMS_ITS | Clinical Summary ---
Author Organization Healthcare Address [address] [place] [address] Care Team Providers Care Occupational Therapy Specialist Name Role Phone Rylan Montgomery MD Primary Care Provider [phone] Social History Tobacco Use Types Packs/Day Years Used Date Smoking Tobacco: Never Assessed Comments Unknown Sex and Gender Information Value Date Recorded Sex Assigned at Not on file Legal Sex Female 1:48 PM EDT Gender Identity Not on file Sexual Orientation Not on file Plan of Treatment Health Maintenance Due Date Last Done Comments [facility]-Bone Density Scan 1956 [facility]-Depression Screening 1956 [facility]-Infant/Child/Adol SDOH Screenings 1956 [facility]- SDOH Screenings 1974 [facility]-Adult SDOH Screenings 1974 CT Colonography 2001 Colonoscopy 2001 FIT-DNA 2001 FIT 2001 FOBT 2001 Sigmoidoscopy 2001 [facility]-Colorectal Cancer Screening 2001 [facility]-Zoster Vaccines (1 of 2) 2006 [facility]-DTaP,Tdap,and Td Vaccines (2 - Td or Tdap) 12/03/2021 12/04/2011 [facility]-Pneumococcal Vaccine: 50+ Years (3 of 3 - PCV20 or PCV21) 11/16/2022 11/16/2017, 11/15/2015, 12/04/2011 [id number] Vaccine (1 - season) 2023 [facility]-Influenza Vaccine (Season Ended) 2024 11/18/2018, 11/16/2017, 11/15/2015, Additional history exists [facility]-RSV Vaccine: 60+ Years or (1 - 1-dose 75+ series) 10/04/2031 HPV Vaccines Aged Out No longer eligi ble based on patient's age to complete this topic [facility]-HIB Vaccines Aged Out No longer e ligible based on patient's age to complete this topic [facility]-Hepatitis A Vaccines Aged Out No longer eligible based on patient's age to complete this topic [facility]-IPV Vaccines Aged Out No longer e ligible based on patient's age to complete this topic [facility]-Rotavirus Vaccines Aged Out No lo nger eligible based on patient's age to complete this topic Insurance [employer] MEDICARE Care Teams Occupational Therapy Specialist Relationship Specialty Start Date End Date Rylan Montgomery MD PCP - General 06/19/22
--- OUTSIDE RECORDS SUMMARY | 2024-08-13 10:44 | XMS_ITS | CCD ---
Author Name Interface, [email or web address] lity Address [address] [place] [address] Organization [facility] Address [address] [place] [id number] Care Team Providers Care Commercial Property Administrator Name Role Phone Miquel PULLIAM, Corby [place] Unavailable Unavailable Allergies and Adverse Reactions Medication/Group Name Reaction Severity Date No known allergies Reason for Visit 0 Medications Date Name Route Dose Frequency Instructions Start Date End Date Status Pantoprazole (Sodium ) Oral Delayed Release DAILY active Meloxicam Oral DAILY st opped Ferrous Sulfate Oral orally 325.0 every day active Hydrochlorothiazide Oral DAILY stopped Tizanidine Oral a ctive Pramipexole Oral DAILY stopped Cholecalciferol Oral active 017 Meloxicam Oral 017 active 017 Pramipexole Oral 017 active 017 Hydrochlorothiazide Oral 017 active Problems Diagnosis Status Date of Diagnosis Resolution Date Iron deficiency anemia secon latrice to blood loss Active Malabsorption syndrome (disorder) Active Social History Date Name Value Sex Female
--- OUTSIDE RECORDS SUMMARY | 2024-08-13 10:44 | XMS_ITS | Data Portability ---
Author Organization [facility] Address [address] [place] [address] Assessment Encounter Date Assessment Date Assessment LastModified by Organization Details LastModified Time 02/29/2024 02/29/2024 I was present with the resident during the history and exam. I discussed the case with the resident and agree with the findings and plan as documented in the resident's note. [email or web address] Not available 02/29/2024 18:10:46 Plan of Treatment Reminders Order Date Submit Date Provider Last Modified By Organization Details Last Modified Time Details Appointments None recorded. Lab rapid strep group A, throat 2023 [email or web address] [facility], [address] Perl[address] Bonds [facility], [place], [address], 4 16:09:03 HbA1c (hemoglobin A1c), blood 2023 024 [facility], [address], [address]aim [address], [place], [address], 4 13:10:56 CBC w/ auto diff 2023 024 [facility], [address], [address], [place], [address], 4 13:10:52 ferritin, serum or plasma 2023 024 [facility], [address], [address], [place], [address], 4 13:10:57 iron + total iron-bindin g capacity (TIBC), serum 2023 024 HAO [facility], [address], [address] [address], [place], [address], 4 13:10:55 TSH + free T4, serum 2023 024 [facility], [address], [address] [address], [place], [address], 4 13:10:51 lipid panel, serum 2023 024 [facility], [address], [address], [place], [address], 4 13:10:54 CMP, serum or plasma 2023 024 [facility], [address], [address] [address], [place], [address], 4 13:10:[address] referral 2024 025 [facility], [address] [facility] [address], [place], [address], 5 08:08:58 cardiologis t referral 2024 025 HAO Liu MD, [address], [place], [address], 5 17:55:49 vascular surgeon referral 2023 024 [facility], [address] [place] [address] , [place], [address], 5 04:01:23 Procedures None recorded. Surgeries None recorded. Imaging home sleep study 2024 025 HAO [facility] (Centralized Scheduling), [address] [facility] , [place], [address], 5 04:02:36 Medication Orders Wegovy 0.25 mg/0.5 mL subcutaneou s pen injector 2024 025 [facility], [address] [place] [address], [address], 5 08:36:27 Zepbound 2.5 mg/0.5 mL subcutaneou s pen injector 2024 025 [facility], [address] [place] [address], [address], 5 16:58:12 Spiriva Respimat 1.25 mcg/actuati on solution for inhalation 2024 025 [facility], [address] [place] [address], [address], 5 08:18:55 Ozempic 0.25 mg or 0.5 mg (2 mg/1.5 mL) subcutaneou s pen injector [address], [address], 5 08:19:17 gabapentin 600 mg tablet [address] [facility], [address] [place] [address], [address], 5 11:32:36 Xarelto 20 mg tablet [address], [address], 5 16:57:38 amoxicillin 500 mg capsule 2023 [address], [address], 09:12:44 Patient TargetsNo targets recorded. Patient Instructions Encounter Date Encounter Id Patient Instructions Last Modified By Organization Details Last Modified Time 10/04/2023 [id number] body mass index: care instructions Not available 10/04/2023 09:31:36 learning about healthy weight Not available 10/04/2023 09:31:36 labs today; will obtain records from alejandro lindsay/specialist [facility]. Not available 10/04/2023 20:49:09 01/08/2024 [id number] body mass index: care instructions [email or web address] Not available 01/08/2024 16:09:02 learning about healthy weight Not available 01/08/2024 16:09:02 02/29/2024 [id number] high cholesterol : care instructions ddravid Not available 02/29/2024 16:11:59 chronic obstruct cesar pulmonary disease (COPD): care instructions ddravid Not available 02/29/2024 16:11:59 learning about c opd and how to prevent lung infections ddravid Not available 02/29/2024 16:11:59 complete PFT w/ post bronchodilator spirometry* HAO Not available 03/20/2024 14:16:16 learning about healthy weight ddravid Not available 02/29/2024 16:11:59 body mass index: care instructions ddravid Not available 02/29/2024 16:11:59 restless legs syndrome: care instructions ddravid Not available 02/29/2024 16:11:59 03/24/2024 [id number] restless legs syndrome: care instructions ddravid Not available 03/24/2024 15:49:10 When You Want to Lose Weight: Care Instructions ddravid Not available 03/24/2024 15:49:10 chronic obstruct cesar pulmonary disease (COPD): care instructions ddravid Not available 03/24/2024 15:49:10 learning about c opd and how to prevent lung infections ddravid Not available 03/24/2024 15:49:10 The patient was seen and evaluated with the resident as documented above. The case and presentation were discussed. I agree with the plan and treatment recommendations as outlined above. Not available 03/24/2024 15:08:54 04/21/2024 [id number] restless legs syndrome: care instructions ddravid Not available 04/21/2024 15:50:13 When You Want to Lose Weight: Care Instructions ddravid Not available 04/23/2024 08:36:24 body mass index: care instructions ddravid Not available 04/23/2024 08:36:24 learning about healthy weight ddravid Not available 04/23/2024 08:36:24 high cholesterol : care instructions ddravid Not available 04/21/2024 15:50:13 The patient was seen and evaluated with the resident as documented above. The case and presentation were discussed. I agree with the plan and treatment recommendations as outlined above. [email or web address] Not available 04/21/2024 14:05:14 Reason for Referral Vascular Surgeon Referral fo r Peripheral venous insufficiency Referring Physician: Ludy Rodrigues [facility], Encounter Date: 01/08/2024 Java Web Engineer Referral for C hronic obstructive pulmonary disease Referring Physician: Concetta Salazar [facility], Encounter Date: 02/29/2024 Psychology Assistant Referral for Ch ronic atrial fibrillation Referring Physician: Concetta Salazar [facility], Encounter Date: 02/29/2024 Results Created Date Observation Date Name Description Value Unit Range Abnormal Flag Note LastModifiedBy Organization Detail LastModifiedTime 10/04/1910/05/2023 TSH+F REE T4 TSH 2.140 uIU/m L 0.450- 4.500 normal Not Available [facility] ([facility]) [address] [place], [address], 10/05/2023 13:10:51 10/04/19 24 10/05/2023 TSH+F REE T4 T4,free(dire ct) 1.19 NG/dL 0.82-1 .77 normal Not Available [facility] ([facility]) [address] [place], [address], 10/05/2023 13:10:51 10/04/19 24 10/05/2023 CBC WITH DIFFE RENTI AL/PL ATELE T WBC 5.0 x10e3 /uL 3.4-10 .8 normal Not Available [facility] ([facility]) [address] [facility], [place], [address], 10/05/2023 13:10:52 10/04/19 24 10/05/2023 CBC WITH DIFFE RENTI AL/PL ATELE T RBC 3.89 x10e6 /uL 3.77-5 .28 normal Not Available [facility] ([facility]) [address] [place], [address], 10/05/2023 13:10:52 10/04/19 24 10/05/2023 CBC WITH DIFFE RENTI AL/PL ATELE T hemoglobin 10.9 g/dL 11.1-1 5.9 below low normal Not Available [facility] ([facility]) [address] [facility], [place], [address], 10/05/2023 13:10:52 10/04/19 24 10/05/2023 CBC WITH DIFFE RENTI AL/PL ATELE T hematocrit 35.8 % 34.0-4 6.6 normal Not Available [facility] ([facility]) [address] [place], [address], 10/05/2023 13:10:52 10/04/19 24 10/05/2023 CBC WITH DIFFE RENTI AL/PL ATELE T MCV 92 fL 79-97 normal Not Available [facility] ([facility]) [address] [place], [address], 10/05/2023 13:10:52 10/04/19 24 10/05/2023 CBC WITH DIFFE RENTI AL/PL ATELE T MCH 28.0 pg 26.6-3 3.0 normal Not Available [facility] ([facility]) [address] [place], [address], 10/05/2023 13:10:52 10/04/19 24 10/05/2023 CBC WITH DIFFE RENTI AL/PL ATELE T MCHC 30.4 g/dL 31.5-3 5.7 below low normal Not Available [facility] ([facility]) [address] [facility], [place], [address], 10/05/2023 13:10:52 10/04/19 24 10/05/2023 CBC WITH DIFFE RENTI AL/PL ATELE T RDW 14.8 % 11.7-1 5.4 Not Available [facility] ([facility]) [address] [facility], [place], [address], 10/05/2023 13:10:52 10/04/19 24 10/05/2023 CBC WITH DIFFE RENTI AL/PL ATELE T platelets 202 x10e3 /uL 150-45 0 normal Not Available [facility] ([facility]) [address] [facility], [place], [address], 10/05/2023 13:10:52 10/04/19 24 10/05/2023 CBC WITH DIFFE RENTI AL/PL ATELE T neutrophils 62 % not estab. normal Not Available [facility] ([facility]) [address] [facility], [place], [address], 10/05/2023 13:10:52 10/04/19 24 10/05/2023 CBC WITH DIFFE RENTI AL/PL ATELE T lymphs 26 % not estab. normal Not Available [facility] ([facility]) [address] [facility], [place], [address], 10/05/2023 13:10:52 10/04/19 24 10/05/2023 CBC WITH DIFFE RENTI AL/PL ATELE T monocytes 8 % not estab. normal Not Available [facility] ([facility]) [address] [place], [address], 10/05/2023 13:10:52 08/22/20 24 10/05/2023 CBC WITH DIFFE RENTI AL/PL ATELE T eos 3 % not estab. normal Not Available [facility] ([facility]) [address] [place], [address], 10/05/2023 13:10:52 10/04/19 24 10/05/2023 CBC WITH DIFFE RENTI AL/PL ATELE T basos 1 % not estab. normal Not Available [facility] ([facility]) [address] [facility], [place], [address], 10/05/2023 13:10:52 10/04/19 24 10/05/2023 CBC WITH DIFFE RENTI AL/PL ATELE T immature cells DESK OFFICER Not Available [facility] ([facility]) [address] [facility], [place], [address], 10/05/2023 13:10:52 10/04/19 24 10/05/2023 CBC WITH DIFFE RENTI AL/PL ATELE T neutrophils (absolute) 3.1 x10e3 /uL 1.4-7. 0 normal Not Available [facility] ([facility]) [address] [place], [address], 10/05/2023 13:10:52 10/04/19 24 10/05/2023 CBC WITH DIFFE RENTI AL/PL ATELE T lymphs (absolute) 1.3 x10e3 /uL 0.7-3. 1 normal Not Available [facility] ([facility]) [address] [place], [address], 10/05/2023 13:10:52 10/04/19 24 10/05/2023 CBC WITH DIFFE RENTI AL/PL ATELE T monocytes(ab solute) 0.4 x10e3 /uL 0.1-0. 9 normal Not Available [facility] ([facility]) [address] [place], [address], 10/05/2023 13:10:52 10/04/19 24 10/05/2023 CBC WITH DIFFE RENTI AL/PL ATELE T eos (absolute) 0.2 x10e3 /uL 0.0-0. 4 normal Not Available [facility] ([facility]) [address] [facility], [place], [address], 10/05/2023 13:10:52 10/04/19 24 10/05/2023 CBC WITH DIFFE RENTI AL/PL ATELE T baso (absolute) 0.0 x10e3 /uL 0.0-0. 2 normal Not Available [facility] ([facility]) [address] [facility], [place], [address], 10/05/2023 13:10:52 10/04/19 24 10/05/2023 CBC WITH DIFFE RENTI AL/PL ATELE T immature granulocytes 0 % not estab. Not Available [facility] ([facility]) [address] [facility], [place], [address], 10/05/2023 13:10:52 10/04/19 24 10/05/2023 CBC WITH DIFFE RENTI AL/PL ATELE T immature grans (abs) 0.0 x10e3 /uL 0.0-0. 1 Not Available [facility] ([facility]) [address] [facility], [place], [address], 10/05/2023 13:10:52 10/04/19 24 10/05/2023 CBC WITH DIFFE RENTI AL/PL ATELE T NRBC DESK OFFICER Not Available [facility] ([facility]) [address] [facility], [place], [address], 10/05/2023 13:10:52 10/04/19 24 10/05/2023 CBC WITH DIFFE RENTI AL/PL ATELE T hematology comments: DESK OFFICER Not Available [facility] ([facility]) [address] [facility], [place], [address], 10/05/2023 13:10:52 10/04/19 24 10/05/2023 COMP. METAB OLIC PANEL (14) glucose 87 mg/dL 70-99 normal Not Available [facility] ([facility]) [address] [place], [address], 10/05/2023 13:10:53 10/04/19 24 10/05/2023 COMP. METAB OLIC PANEL (14) BUN 15 mg/dL 8-27 normal Not Available [facility] ([facility]) [address] [place], [address], 10/05/2023 13:10:53 10/04/19 24 10/05/2023 COMP. METAB OLIC PANEL (14) creatinine 0.86 mg/dL 0.57-1 .00 normal Not Available [facility] ([facility]) [address] [place], [address], 10/05/2023 13:10:53 10/04/19 24 10/05/2023 COMP. METAB OLIC PANEL (14) eGFR 74 mL/mi n/1.7 3 >59 normal Not Available [facility] ([facility]) [address] [place], [address], 10/05/2023 13:10:53 10/04/19 24 10/05/2023 COMP. METAB OLIC PANEL (14) BUN/creatini ne ratio 17 12-28 normal Not Available [facility] ([facility]) [address] [place], [address], 10/05/2023 13:10:53 10/04/19 24 10/05/2023 COMP. METAB OLIC PANEL (14) sodium 140 mmol/ L 134-14 4 normal Not Available [facility] ([facility]) [address] [place], [address], 10/05/2023 13:10:53 10/04/19 24 10/05/2023 COMP. METAB OLIC PANEL (14) potassium 4.0 mmol/ L 3.5-5. 2 normal Not Available [facility] ([facility]) [address] [place], [address], 10/05/2023 13:10:53 10/04/19 24 10/05/2023 COMP. METAB OLIC PANEL (14) chloride 102 mmol/ L 96-106 normal Not Available [facility] ([facility]) [address] [place], [address], 10/05/2023 13:10:53 10/04/19 24 10/05/2023 COMP. METAB OLIC PANEL (14) carbon dioxide, total 21 mmol/ L 20-29 normal Not Available [facility] ([facility]) [address] [place], [address], 10/05/2023 13:10:53 10/04/19 24 10/05/2023 COMP. METAB OLIC PANEL (14) calcium 8.2 mg/dL 8.7-10 .3 below low normal Not Available [facility] ([facility]) [address] [place], [address], 10/05/2023 13:10:53 10/04/19 24 10/05/2023 COMP. METAB OLIC PANEL (14) protein, total 5.8 g/dL 6.0-8. 5 below low normal Not Available [facility] ([facility]) [address] [place], [address], 10/05/2023 13:10:53 10/04/19 24 10/05/2023 COMP. METAB OLIC PANEL (14) albumin 3.6 g/dL 3.9-4. 9 below low normal Not Available [facility] ([facility]) [address] [place], [address], 10/05/2023 13:10:53 10/04/19 24 10/05/2023 COMP. METAB OLIC PANEL (14) globulin, total 2.2 g/dL 1.5-4. 5 Not Available [facility] ([facility]) [address] [place], [address], 10/05/2023 13:10:53 10/04/19 24 10/05/2023 COMP. METAB OLIC PANEL (14) bilirubin, total 0.5 mg/dL 0.0-1. 2 normal Not Available [facility] ([facility]) [address] [place], [address], 10/05/2023 13:10:53 10/04/19 24 10/05/2023 COMP. METAB OLIC PANEL (14) alkaline phosphatase 70 IU/L 44-121 normal Not Available [facility] ([facility]) [address] [place], [address], 10/05/2023 13:10:53 10/04/19 24 10/05/2023 COMP. METAB OLIC PANEL (14) AST (SGOT) 18 IU/L 0-40 normal Not Available [facility] ([facility]) [address] [place], [address], 10/05/2023 13:10:53 10/04/19 24 10/05/2023 COMP. METAB OLIC PANEL (14) ALT (SGPT) 12 IU/L 0-32 normal Not Available [facility] ([facility]) [address] [facility] [place], [address], 10/05/2023 13:10:53 10/04/19 24 10/05/2023 LIPID PANEL cholesterol, total 146 mg/dL 100-19 9 normal Not Available [facility] ([facility]) [address] [facility] [place], [address], 10/05/2023 13:10:54 10/04/19 24 10/05/2023 LIPID PANEL triglyceride s 88 mg/dL 0-149 normal Not Available [facility] ([facility]) [address] [facility] [place], [address], 10/05/2023 13:10:54 10/04/19 24 10/05/2023 LIPID PANEL HDL cholesterol 61 mg/dL >39 normal Not Available [facility] ([facility]) [address] [place], [address], 10/05/2023 13:10:54 10/04/19 24 10/05/2023 LIPID PANEL VLDL cholesterol mariaelena 17 mg/dL 5-40 Not Available [facility] ([facility]) [address] [place], [address], 10/05/2023 13:10:54 10/04/19 24 10/05/2023 LIPID PANEL LDL chol calc ([facility]) 68 mg/dL 0-99 Not Available [facility] ([facility]) [address] [place], [address], 10/05/2023 13:10:54 10/04/19 24 10/05/2023 LIPID PANEL LDL calc comment: DESK OFFICER Not Available [facility] ([facility]) [address] [place], [address], 10/05/2023 13:10:54 10/04/19 24 10/05/2023 IRON AND TIBC iron bind.cap.(TI BC) 312 ug/dL 250-45 0 normal Not Available [facility] ([facility]) [address] [place], [address], 10/05/2023 13:10:55 10/04/19 24 10/05/2023 IRON AND TIBC UIBC 256 ug/dL 118-36 9 normal Not Available [facility] ([facility]) [address] [place], [address], 10/05/2023 13:10:55 10/04/19 24 10/05/2023 IRON AND TIBC iron 56 ug/dL 27-139 normal Not Available [facility] ([facility]) [address] [place], [address], 10/05/2023 13:10:55 10/04/19 24 10/05/2023 IRON AND TIBC iron saturation 18 % 15-55 normal Not Available [facility] ([facility]) [address] [facility], [place], [address], 10/05/2023 13:10:55 10/04/19 24 10/05/2023 HEMOG LOBIN A1C hemoglobin A1C 5.3 % 4.8-5. 6 normal Predi abete s: 5.7 - 6.4 Diabe angelika: >6.4 Glyce armida contr ol for adult s with diabe angelika: <7.0 Not Available [facility] ([facility]) [address] [facility], [place], [address], 10/05/2023 13:10:56 10/04/19 24 10/05/2023 SAL TIN ferritin 117 NG/mL 15-150 normal Not Available [facility] ([facility]) [address] [facility], [place], [address], 10/05/2023 13:10:57 01/08/20 24 01/08/2024 rapid strep group A, throa t Strep positi ve Not Available [facility] [address] [facility], [place], [address], 01/08/2024 15:48:15 01/08/20 24 01/08/2024 rapid strep group A, throa t Culture No Not Available [facility] [address] [facility] [facility] [place], [address], 01/08/2024 15:48:15 03/20/19 25 03/05/2024 compl ete PFT w/ post [facility] hodil ator dioni metry * No observ ation record ed. [email or web address] [facility] [address] , [place], [address], 03/20/2024 14:16:16 05/1404/15/2024 imagi ng inter preta tion No observ ation record ed. [facility] [address], [place], [address], 07/03/2024 10:37:02 Result Notes None recorded. Problems Name Problem SNOMED Code Status Onset Date Resolution Date Notes Provider Name and Address Organization Details Recorded Time History of iron deficien cy 541747929 Active 2017 follows with hem/oc gets FE transfus carlee. Nini Rockwell, BLIND [employer] [address], [place], [address], [place] - [facility] 4 20:17:47 [facility] hyperten carlee 81422891 Active 2017 Concetta Salazar, DO [address], [place], [address], [place] - [facility] 5 14:11:55 Erosive osteoart hrosis 245401014 Active 2017 Concetta Salazar DO [address], [place], [address], [place] - [facility] 5 14:11:32 Hypoxia 343980329 Active 2017 [place] hypoxia [facility] Gall[facility]ste [facility] 8 09:25:43 Anemia 373814852 Completed 201503/12/2017 Keerthi Jones [facility] 8 13:41:17 Acid reflux 841504261 Active 2015 Concetta Salazar DO [address], [place], [address], [place] - [facility] 5 14:12:13 Anxiety disorder 113530062 Active 2015 Concetta Salazar DO [address], [place], [address], [place] - [facility] 5 14:11:42 Restless legs 91828524 Active 2015 Concetta Salazar DO [address], [place], [address], [place] [facility] 5 15:41:37 Depressi ve disorder 86490283 Active 2018 Vanesa Kincaid null, [place] - [facility] 9 10:26:48 Cerebrov ascular disease 04194182 Active 2018 Vanesa Kincaid null, [place] - [facility] 9 10:27:22 Hyperlip idemia 07830636 Active 2018 Vanesa Kincaid null, [place] - [facility] 9 10:27:54 Disorder of pancreas 3994078 Active 2018 Vanesa Kincaid null, [place] - [facility] 9 10:29:51 History of bypass of stomach 777130181 Active 2018 Concetta Salazar DO [address], [place], [address], [place] - [facility] 5 14:10:46 Chronic atrial fibrilla tion 388796891 Active [address] [facility] 2023 no stents Nini Rockwell [employer] [address], [place], [address], [place] - [facility] 4 09:18:51 Bilatera l arthriti s of knees 28215022538 91720 Active 2023 1 Nini Rockwell [employer] [address], [place], [address], [place] - [facility] 4 09:17:57 Strictur e of esophagu s 46441032 Active 2023 EGD and dilatati on x 2 in 2023 colonosc opy 08/2023 neg lesions Nini Rockwell, [employer] [address], [place], [address], [place] [facility] 4 09:20:21 Peripher al venous insuffic iency 32001474 Active 2023 mod-sev lymphade ma of lower extremit ies Nini Rockwell, [employer] [address], [place], [address], [place] - [facility] 4 20:40:53 Morbid obesity 185968244 Active 2024 Concetta Salazar DO [address], [place], [address], [place] - [facility] 5 14:11:49 History of coronary artery bypass grafting 552344956 Active 2024 Abdinate Marie, DO [address], [place], [address], [place] - [facility] 5 15:00:54 Problem Notes None recorded. Procedures Surgical History Date Name Laterality Status Provider Name and Address Organization Details Recorded Time 08/13/19 24 colonoscopy completed [facility] 02/29/2024 14:15:11 08/13/19 24 endoscopy completed [facility] 02/29/2024 14:15:26 05/14/19 21 total knee replacement completed Ludivina Pettit APRN [address], [place], [address], [facility] - [facility] 05/13/2020 21:37:15 11/30/19 19 Date of Last Mammogram completed Meryl Klein APRN [address], [place], [address], [facility] - [facility] 12/02/2018 13:51:27 02/13/19 19 Diastolic B/P less than 80 mm Hg completed [facility] - [facility] 03/13/2018 11:05:37 02/13/19 19 Systolic B/P greater than or equal to 140 mm Hg completed [facility] - [facility] 03/13/2018 11:05:31 01/17/20 18 Systolic B/P less than 130 mm Hg completed [facility] - [facility] 03/18/2018 19:18:11 01/17/20 18 Diastolic B/P 80-89 mm Hg completed [facility] - [facility] 03/18/2018 19:18:15 08/13/19 16 Knee arthroscopy/surg leidy completed Meryl Klein APRN [address], [place], [address], [facility] - [facility] 12/09/2015 13:14:34 12/18/19 14 Date of Last Pap Smear completed Meryl Klein APRN [address], [place], [address], [facility] - [facility] 12/09/2015 13:08:01 total knee replacement completed Mel Hedrick [place] - [facility] 10/04/2023 08:58:46 Cardiac Cath completed Meryl Klein, [employer] [address], [place], [place], [address] [place] [address], [place] - [facility] 12/09/2015 13:13:34 Stress test completed Meryl Klein, [employer] [address], [place], [address] [place] [address], [place] - [facility] 12/09/2015 13:13:40 Cholecystectomy, laparoscopic completed Meryl Klein, BLIND [address], [place], [place], [address] [place] [address], [facility] - [facility] 12/09/2015 13:13:49 Endoscopy completed Meryl Klein, [facility] [address] [address], [place], [place], [address] [place] [address], [facility] - [facility] 12/09/2015 13:13:56 Gastric Bypass completed Meryl Silva malinda, [facility] [address] [address], [place], [place], [address] [place] [address], [facility] 12/09/2015 13:14:08 Hysterectomy completed Skylar Evaristo [place] - [facility] 12/09/2015 13:37:11 Tubal Ligation completed Meryl petty, [facility] [address] [address], [place], [place], [address] [place] [address], [facility] - [facility] 12/09/2015 13:14:57 Imaging Results None recorded. Procedure Notes None recorded. Medical Equipment None Reported. Allergies Allergen ID Allergen Name Allergen Category Reaction Reaction Severity Criticality Documentation Date Start Date Code Code System Note Provider Name and Address Organization Details Recorded Time 73931 gabapenti n medicatio n abdominal pain Not available Not available 09/26/2016 50968 RxNorm nause a, vomit ing and dizzi ness Catrina amezquita, [place] - [facility] 14:10:53 Medications Name Sig Start Date Stop Date Status Note LastModified by Organization Details LastModified Time Prescript ion - Renewal 07/09 completed RX- [facility] Not Available Not Available Not Available compressi on stockings size g 07/25 completed Not Available Not Available Not Available generic cough suppressa nt dm ( 08/30 completed Not Available Not Available Not Available potassium gluconate 595 mg 09/26 completed Not Available Not Available Not Available effervesc ent denture tabs - 90 01/16 completed Not Available Not Available Not Available acetamino phen 500 mg 10/19 completed Not Available Not Available Not Available miconazol e 3 07/17 completed Not Available Not Available Not Available anti hemorrhoi dariela ointment 07/25 completed Not Available Not Available Not Available gummy multi-vit beltran 11/18 completed Not Available Not Available Not Available chewable calcium with vitamin 1 by oral route daily 11/18 completed Not Available Not Available Not Available Prescript ion - Clarifica tion 05/14 completed MEDICATI ON PROFILE Not Available Not Available Not Available acetamino phen 80 mg 10/19 completed Not Available Not Available Not Available reusable cold compress 08/30 completed Not Available Not Available Not Available expectora nt guaifenes in 400m 08/30 completed Not Available Not Available Not Available Prescript ion - Prior Authoriza tion Request active Not Available Not Available Not Available vitamin b-12 5000mg sublingua l 08/21 completed Not Available Not Available Not Available generic cough suppressa nt/nasa 01/16 completed Not Available Not Available Not Available celecoxib 200 mg capsule Take 1 capsule every day by oral route. 10/19 completed Not Available Not Available Not Available amoxicill in 500 mg capsule TAKE 1 CAPSULE BY MOUTH EVERY 12 HOURS FOR 7 DAYS 02/28 completed Not Available Not Available Not Available pramipexo le 1 mg tablet TAKE ONE (1) TABLET EVERY DAY BY ORAL ROUTE. active Not Available Not Available No t Available promethaz ine-DM 6.25 mg-15 mg/5 mL oral syrup 12/08 completed Not Available Not Available Not Available rabeprazo le 20 mg tablet,de layed release active Not Available Not Available Not Available gabapenti n 600 mg tablet TAKE 1 TABLET BY MOUTH EVERY DAY active Not Available Not Available No t Available Depo-Medr ol 40 mg/mL suspensio n for injection Take 40 mg by injectio n route. 07/25 completed Not Available Not Available Not Available torsemide 20 mg tablet TAKE ONE (1) TABLET TWICE A DAY BY ORAL ROUTE. active Not Available Not Available No t Available nabumeton e 750 mg tablet 08/21 completed Not Available Not Available Not Available azithromy maikel 250 mg tablet TAKE 2 TABLETS (500 MG) BY ORAL ROUTE ONCE DAILY FOR 1 DAY THEN 1 TABLET (250 MG) BY ORAL ROUTE ONCE DAILY FOR 4 DAYS 08/21 completed Not Available Not Available Not Available tizanidin e 4 mg tablet TAKE 1 TABLET EVERY 8 HOURS NEEDED 08/21 completed Not Available Not Available Not Available metoprolo l succinate ER 50 mg tablet,ex tended release 24 hr TAKE ONE (1) TABLET EVERY DAY BY ORAL ROUTE. 04/21 completed Not Available Not Available Not Available B Complex-V itamin B12 tablet 12/19 completed B Complex- Vitamin B12 Oral Tablet;R ecorded Status: Recorded on: 06/23/19 09 10:14AM; Disconti nued Status: Disconti nued on: 12/20/19 12 5:34PM;U ser: [email or web address] Not Available Not Available Not Available hydrocodo ne 5 mg-acetam inophen 325 mg tablet Take 1 tablet every 8 hours by oral route as needed. 12/25 completed Not Available Not Available Not Available meloxicam 15 mg tablet take 1 tablet by mouth once daily 08/21 completed Not Available Not Available Not Available sucralfat e 1 gram tablet Take by oral route for 33 days. 10/03 completed Not Available Not Available Not Available promethaz ine 12.5 mg tablet 12/08 completed Not Available Not Available Not Available prednison e 20 mg tablet 12/08 completed Not Available Not Available Not Available gabapenti n 400 mg capsule 07/25 completed Not Available Not Available Not Available calcium 500 mg tablet take 1 tablet by oral route 3 times a day 08/24 completed calcium 500 mg oral tablet;R ecorded Status: Recorded on: 06/23/19 09 10:14AM; Disconti nued Status: Disconti nued on: 08/25/19 09 8:44AM;U ser: [email or web address] Not Available Not Available Not Available Jenifer craig Complete (iron) chewable tablet chew 1 tablet by oral route 2 times a day 12/19 completed Gail forte Complete (iron) oral tablet,c hewable; Recorded Status: Recorded on: 06/23/19 09 10:14AM; Disconti nued Status: Disconti nued on: 12/20/19 12 5:34PM;U ser: [email or web address] Not Available Not Available Not Available clobetaso l 0.05 % topical cream APPLY A THIN LAYER TO THE AFFECTED AREA(S) BY TOPICAL ROUTE 2 TIMES PER DAY x 2 weeks then daily x 2 weeks 10/03 completed Not Available Not Available Not Available Ultram 50 mg tablet take 1 tablet by oral route 2 times a day for 30 days 12/19 completed Ultram 50 mg oral tablet;R ecorded Status: Recorded on: 03/15/19 10 1:23PM;D iscontin ued Status: Disconti nued on: 12/20/19 12 5:34PM;U ser: neuss;Es t. Completi on: 06/08/19 10 Not Available Not Available Not Available fluocinon gabriella 0.05 % topical ointment apply to the affected area(s) by topical route 2 times per day for 14 days 10/06 completed fluocino nide 0.05 % topical ointment ;Recorde d Status: Recorded on: 12/16/19 14 2:56PM;D iscontin ued Status: Disconti nued on: 10/07/19 15 12:47PM; User: [email or web address] Acostai on: 12/30/19 14;Print ed: 12/16/19 14 Not Available Not Available Not Available omeprazol e 40 mg capsule,d elayed release take 1 capsule (40 mg) by oral route once daily before a meal for 30 days 06/21 completed Not Available Not Available Not Available aspirin 81 mg tablet,de layed release TAKE ONE (1) TABLET EVERY DAY BY ORAL ROUTE. active Not Available Not Available No t Available triamcino lone acetonide 0.1 % topical cream APPLY A THIN LAYER TO THE AFFECTED AREA(S) BY TOPICAL ROUTE 2 TIMES PER DAY 08/30 completed Not Available Not Available Not Available spironola ctone 25 mg tablet Take by oral route for 90 days. 10/03 completed Not Available Not Available Not Available Prevacid 30 mg capsule,d elayed release take 1 capsule (30 mg) by oral route 2 times per day before meals in combinat ion with amoxicil casey and clarithr omycin for 30 days 12/19 completed Prevacid 30 mg oral capsule, delayed release( /EC);R ecorded Status: Recorded on: 06/23/19 09 10:47AM; Disconti nued Status: Disconti nued on: 12/20/19 12 5:34PM;U ser: calvom;E st. Completi on: 09/21/19 09;Print ed: 06/23/19 09 Not Available Not Available Not Available Depo-Medr ol 80 mg/mL suspensio n for injection Take 80 mg by injectio n route. 07/25 completed Not Available Not Available Not Available pramipexo le 0.5 mg tablet TAKE TWO TABLETS BY MOUTH ONE DOSE EACH DAY 06/21 completed Not Available Not Available Not Available Requip 0.5 mg tablet take 1 tablet (0.5 mg) by oral route 1-3 hours before bedtime for 30 days 05/16 completed Requip 0.5 mg oral tablet;R ecorded Status: Recorded on: 10/07/19 15 1:18PM;D iscontin ued Status: Disconti nued on: 05/17/19 16 2:13PM;U ser: [email or web address]; Est. Completi on: 01/05/20 15;Indic ation: Restless Legs Syndrome - (06.3339 92);Prin eduardo: 10/07/19 15 Not Available Not Available Not Available benzonata te 100 mg capsule take 1 capsule (100 mg) by oral route three times daily as needed. 01/17 completed Not Available Not Available Not Available Lasix 20 mg tablet Take 1 tablet every day by oral route. 08/30 completed Not Available Not Available Not Available pantopraz ole 40 mg tablet,de layed release TAKE ONE (1) TABLET EVERY DAY BY ORAL ROUTE. 02/28 completed Not Available Not Available Not Available cyanocoba haroon (vit B-12) 1,000 mcg/mL injection solution Inject 1000 microgra ms by subcutan eous route for 1 day. 11/18 completed Not Available Not Available Not Available ferrous sulfate 325 mg (65 mg iron) tablet 06/26 completed Not Available Not Available Not Available ranitidin e 150 mg tablet Take 1 tablet(s ) twice a day by oral route as directed for 30 days. 08/21 completed Not Available Not Available Not Available clotrimaz ole-betam ethasone 1 %-0.05 % topical cream APPLY TO THE AFFECTED AND SURROUND ING AREAS OF SKIN BY TOPICAL ROUTE 2 TIMES PER DAY IN THE MORNING AND EVENING FOR 2 WEEKS 08/21 completed Not Available Not Available Not Available gabapenti n 300 mg capsule take 1 capsule (300 mg) by oral route 3 times per day 03/12 completed Not Available Not Available Not Available diclofena c sodium 75 mg tablet,de layed release Take 1 tablet every day by oral route as directed for 30 days. 10/03 completed Not Available Not Available Not Available hydrochlo rothiazid e 25 mg tablet Take 1 tablet every day by oral route. 07/25 completed Not Available Not Available Not Available Lotrimin AF (clotrima zole) 1 % topical cream apply to the affected and surround ing areas of skin by topical route 2 times per day morning and evening for 14 days 12/19 completed Lotrimin AF 1 % topical cream;Re corded Status: Recorded on: 09/22/19 09 9:51AM;D iscontin ued Status: Disconti nued on: 12/20/19 12 5:34PM;U ser: calvom;E st. Completi on: 10/06/19 09;Indic ation: Tinea Corporis - (1105 );Prin eduardo: 09/22/19 09 Not Available Not Available Not Available Tylenol-C odeine #3 300 mg-30 mg tablet take 1 tablet by oral route every 6 hours as needed for 30 days 12/19 completed Tylenol- Codeine #3 300-30 mg oral tablet;R ecorded Status: Recorded on: 03/15/19 10 1:23PM;D iscontin ued Status: Disconti nued on: 12/20/19 12 5:34PM;U ser: neuss;Es t. Completi on: 05/09/19 10 Not Available Not Available Not Available levofloxa maikel 500 mg tablet 12/08 completed Not Available Not Available Not Available Bend 7.5 mg-325 mg tablet Take 1 tablet twice a day by oral route as needed for 30 days. 08/21 completed #10 Not Available Not Available Not Available methylpre dnisolone 4 mg tablets in a dose pack take as directed 07/17 completed Not Available Not Available Not Available albuterol sulfate HFA 90 mcg/actua tion aerosol inhaler INHALE TWO (2) PUFFS EVERY SIX (6) HOURS BY INHALATI ON ROUTE NEEDED. active Not Available Not Available No t Available losartan 50 mg-hydroc hlorothia zide 12.5 mg tablet TAKE 1 TABLET EVERY DAY 11/18 completed doesnt take Not Available Not Available Not Available ketorolac 60 mg/2 mL intramusc ular solution one time only 06/25 completed Not Available Not Available Not Available Celexa 40 mg tablet take one tablet daily 12/02 completed Celexa 40 mg oral tablet;R ecorded Status: Recorded on: 07/25/19 09 10:19AM; Disconti nued Status: Disconti nued on: 12/03/19 13 12:45PM; User: Lenard walter Completbailey on: 10/23/19 09;Indic ation: Depressi on - ([id number]) Not Available Not Available Not Available metoclopr amide 10 mg tablet TAKE ONE (1) TABLET FOUR (4) TIMES A DAY BY ORAL ROUTE NEEDED FOR 14 DAYS. 02/28 completed Not Available Not Available Not Available Vitamin B-12 1,000 mcg tablet 06/21 completed Not Available Not Available Not Available Bactrim DS 800 mg-160 mg tablet Take 1 tablet every 12 hours by oral route for 7 days. 08/30 completed Not Available Not Available Not Available rosuvasta tin 10 mg tablet Take 1 tablet every day by oral route at bedtime. 2024 active Not Available Not Available Not Avai lable bupropion HCl XL 150 mg 24 hr tablet, extended release Take 1 tablet every day by oral route for 90 days. 08/21 completed Not Available Not Available Not Available topiramat e 50 mg tablet 1 tablet po q AM and 2 tablets po q PM 08/21 completed Not Available Not Available Not Available tizanidin e 4 mg capsule take 1 capsule (4 mg) by oral route 3 times per day for 30 days 12/02 completed tizanidi ne 4 mg oral capsule; Recorded Status: Recorded on: 12/20/19 12 6:34PM;D iscontin ued Status: Disconti nued on: 12/03/19 13 12:45PM; User: aida;Es t. Completi on: 11/15/19 13;Indic ation: Muscle Spasm - (13.7288 50) Not Available Not Available Not Available Effexor 08/24 completed Effexor Oral;Rec orded Status: Recorded on: 06/23/19 09 10:14AM; Disconti nued Status: Disconti nued on: 08/25/19 09 8:44AM;U ser: [email or web address] Not Available Not Available Not Available iron 12/19 completed Iron Oral;Rec orded Status: Recorded on: 06/23/19 09 10:14AM; Disconti nued Status: Disconti nued on: 12/20/19 12 5:34PM;U ser: [email or web address] Not Available Not Available Not Available Requip 1 tab po bid 06/22 completed Requip Oral;Rec orded Status: Recorded on: 06/23/19 09 10:14AM; Disconti nued Status: Disconti nued on: 06/23/19 09 10:47AM; User: andrusa Not Available Not Available Not Available Celebrex 08/24 completed Celebrex Oral;Rec orded Status: Recorded on: 06/23/19 09 10:14AM; Disconti nued Status: Disconti nued on: 08/25/19 09 8:44AM;U ser: andrusa Not Available Not Available Not Available AcipHex 04/21 completed Not Available Not Available Not Available Voltaren 1 % topical gel apply 4 gram to the affected area(s) by topical route 4 times per day 05/27 completed Voltaren 1 % topical gel;Eb rded Status: Recorded on: 12/03/19 13 1:16PM;D iscontin ued Status: Disconti nued on: 05/28/19 14 11:26AM; User: [email or web address];Evelin gould Completi on: 01/02/20 13;Indic ation: Osteoart hritis - (90.2659 00);Prin eduardo: 12/03/19 13 Not Available Not Available Not Available sodium,po tassium,m ag sulfates 17.5 gram-3.13 gram-1.6 gram oral soln 10/03 completed Not Available Not Available Not Available Xarelto 20 mg tablet TAKE ONE (1) TABLET EVERY DAY BY ORAL ROUTE. 04/21 completed Not Available Not Available Not Available Folinic-P mónica 4 mg-50 mg-2 mg tablet Take 1 tablet every day by oral route for 90 days. 10/03 completed Not Available Not Available Not Available Spiriva Respimat 1.25 mcg/actua tion solution for inhalatio n Inhale 2 puffs every day by inhalati on route. 2024 active Not Available Not Available Not Avai lable Ozempic 0.25 mg or 0.5 mg (2 mg/1.5 mL) subcutane ous pen injector Inject 0.25 mg by subcutan eous route. 03/24 completed Not Available Not Available Not Available Wegovy 0.25 mg/0.5 mL subcutane ous pen injector 2024 active Not Available Not Available Not Avai lable Ozempic 0.25 mg or 0.5 mg (2 mg/3 mL) subcutane ous pen injector active Not Available Not Available Not Available Voquezna 10 mg tablet Take 1 tablet every day by oral route. 04/21 completed Not Available Not Available Not Available Zepbound 2.5 mg/0.5 mL subcutane ous pen injector Inject 2.5 mg every week by subcutan eous route. 04/215 completed Not Available Not Available Not Available Vitals Date Recorded Body height Body mass index (BMI) Body weight Respiratory rate Heart rate Oxygen saturation Oxygen saturation in Arterial blood by Pulse oximetry Body temperature Systolic And Diastolic Provider Name and Address Organization Details Last Updated DateTime 5 165.1 cm 43.9 kg/m2 419427. 39 g 14 /min 60 /min 99 % 99 % 98 [degF] 144/60 mm[Hg] [facility] 14:17:30 Date Recorded Body height Oxygen saturation Oxygen saturation in Arterial blood by Pulse oximetry Respiratory rate Heart rate Body temperature Body mass index (BMI) Body weight Systolic And Diastolic Provider Name and Address Organization Details Last Updated DateTime 5 165.1 cm 95 % 95 % 14 /min 63 /min 77 [degF] 43.8 kg/m2 016022. 79 g 120/78 mm[Hg] [facility] 15:10:17 Date Recorded Body height Body mass index (BMI) Body weight Heart rate Oxygen saturation Oxygen saturation in Arterial blood by Pulse oximetry Systolic And Diastolic Provider Name and Address Organization Details Last Updated DateTime 5 165.1 cm 42.9 kg/m2 238574. 83 g 74 /min 94 % 94 % 119/74 mm[Hg] Lyndsay Englandens [place] - [facility] 5 14:11:21 Date Recorded Body weight Heart rate Oxygen saturation Oxygen saturation in Arterial blood by Pulse oximetry Respiratory rate Body mass index (BMI) Body height Systolic And Diastolic Provider Name and Address Organization Details Last Updated DateTime 4 277209. 28 g 59 /min 98 % 98 % 18 /min 41.9 kg/m2 165.1 cm 110/68 mm[Hg] Mel Dinhdevon [place] - [facility] 4 09:01:45 Date Recorded Body height Body mass index (BMI) Body weight Respiratory rate Heart rate Body temperature Oxygen saturation Oxygen saturation in Arterial blood by Pulse oximetry Systolic And Diastolic Provider Name and Address Organization Details Last Updated DateTime 4 165.1 cm 42.4 kg/m2 927672. 05 g 16 /min 73 /min 97.7 [degF] 96 % 96 % 117/73 mm[Hg] Catrina WILKINSON - [facility] 15:46:09 Social History Question Answer Notes LastModified by Organization Details LastModified Time Tobacco Smoking Status Former Smoker Quit at age [id number] Mel [place], [place] - [facility] 10/04/2023 08:56:52 Do You Have An Advance Directive? No Information not available 12/09/2015 Are You Blind Or Do You Have Difficulty Seeing? No [email or web address] Information not available 12/09/2015 Is Blood Transfusion Acceptable In An Emergency? Yes Information not available 12/09/2015 What Is Your Level Of Caffeine Consumption? Heavy Coffee, Sweet Tea [email or web address] Information not available 10/04/2023 How Much Tobacco Do You Chew? None Information not available 12/09/2015 In The 14 Days Before Symptom Onset, Have You Had Close Contact With A Laboratory-confi rmed COVID-19 While That Case Was Ill? No Information not available 10/04/2023 In The 14 Days Before Symptom Onset, Have You Had Close Contact With A Person Who Is Under Investigation For COVID-19 While That Person Was Ill? No [email or web address] Information not available 10/04/2023 Have You Been To An Area Known To Be High Risk For COVID-19? No [email or web address] Information not available 10/04/2023 Are You Deaf Or Do You Have Serious Difficulty Hearing? No [email or web address] Information not available 12/09/2015 What Type Of Diet Are You Following? REGULAR Information not available 12/09/2015 Which Illicit Or Recreational Drugs Have You Used? None Information not available 12/09/2015 Have You Processed Blood Or Body Fluids From An Ebola Virus Disease Patient Without Appropriate PPE? No Information not available 10/04/2023 Do You Reside In Or Have You Traveled To An Area Where Ebola Virus Transmission Is Active? No [email or web address] Information not available 10/04/2023 What Is The Highest Grade Or Level Of School You Have Completed Or The Highest Degree You Have Received? DI09752-7 [email or web address] Information not available 10/04/2023 Have There Been Any Changes To Your Family Or Social Situation? No [email or web address] Information not available 10/04/2023 What Is The Fluoride Status Of Your Home? Fluoridated [email or web address] Information not available 10/04/2023 Have You Recently Or Are You Planning To Travel To An Area With Zika Virus? No [email or web address] Information not available 10/04/2023 Live Alone Or With Others? With Others Information not available 12/09/2015 Do You Have A Medical Power Of Cow Tester? No [email or web address] Information not available 10/04/2023 What Was The Date Of Your Most Recent Tobacco Screening? 04/21/2024 [email or web address] Information not available 04/21/2024 How Many Children Do You Have? 6 Information not available 12/09/2015 Performs Monthly Self-breast Exam? No Information not available 12/09/2015 What Is Your Relationship Status? In A Relationship [email or web address] Information not available 10/04/2023 Seat Belts Used Routinely Yes Information not available 12/09/2015 Are You Sexually Active? Yes Not Currently Information not available 12/09/2015 Do You Have Smoke And Carbon Monoxide Detectors In Your Home? Yes [email or web address] Information not available 10/04/2023 Are You Passively Exposed To Smoke? No [email or web address] Information not available 10/04/2023 How Much Tobacco Do You Smoke? No [email or web address] Information not available 11/18/2018 General Stress Level High Information not available 12/09/2015 Do You Use Sunscreen Routinely? No Information not available 12/09/2015 Has Tobacco Cessation Counseling Been Provided? No [email or web address] Information not available 10/04/2023 How Many Years Have You Smoked Tobacco? 3 [email or web address] Information not available 10/04/2023 Do You Have Difficulty Walking Or Climbing Stairs? No [email or web address] Information not available 12/09/2015 Sex: Female Functional Status Question Answer Note LastModified by Organization Details LastModified Time Do you or have you ever used smokeless tobacco? Never used smokeless tobacco [email or web address] Information not available 11/18/2018 Are you currently employed? No Information not available 12/09/2015 Do you have transportation difficulties? No [email or web address] Information not available 10/04/2023 Are you able to care for yourself? Yes [email or web address] Information not available 01/08/2024 Do you have difficulty dressing or bathing? No [email or web address] Information not available 12/09/2015 Do you or have you ever used e-cigarettes or vape? Never used electronic cigarettes [email or web address] Information not available 11/18/2018 What is your exercise level? None Information not available 12/09/2015 Do you use any illicit or recreational drugs? No [email or web address] Information not available 10/04/2023 Do you or have you ever used any other forms of tobacco or nicotine? No [email or web address] Information not available 10/04/2023 What is your level of alcohol consumption? Occasional Once monthly Information not available 10/04/2023 Are you able to walk? YESWOREST [email or web address] Information not available 11/18/2018 Do you have difficulty doing errands alone? 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 [id number] [email or web address] Information not available 10/04/2023 Do you have difficulty concentrating, remembering or making decisions? No [email or web address] Information no t available 12/09/2015 Family History Relationship Description Onset Age of this Age Resolved Age Notes LastModified by Organization Details LastModified Time Sister Malignant tumor of breast [email or web address] Not available 2015 13:10:36 Mother Family history of malignant neoplasm blood [email or web address] Not available 2015 13:11:05 Mother Diabetes mellitus [email or web address] Not available 2015 13:11:15 Mother Hypothyroidi sm Not available 2015 13:11:45 Father Heart disease [email or web address] Not available 2015 13:11:35 Father Myocardial infarction [email or web address] Not available 12/08 13:11:55 Medical History No medical history recorded. Gynecological History Statement/Question Response Last Annual Exam/Provider 11/18/18 w/DT Abnormal Pap N Date of Last Colonoscopy Date of Last Mammogram 11/29/2018 Most Recent Bone Density Sexually Active? N Menses Monthly N HPV Vaccine N Date of Last Pap Smear 12/17/2013 Current Control Method Sterilizati on Hormone Replacement Therapy N Obstetrics History GPAL:G 8 P 6 0 2 6 Type Value Full Term 6 Induced 2 Living 6 Total 8 Immunizations Vaccine Type Date Status Note Provider Nam e and Address Organization Details Recorded Time Tdap 2 completed Not Available [facility] 04/21/2024 13:45:07 pneumococcal polysaccharide PPV23 2 completed Not Available [facility] 04/21/2024 13:45:07 Pneumococcal conjugate PCV 13 6 completed Not Available [facility] 04/21/2024 13:45:07 Influenza, split virus, quadrivalent, preservative 6 completed Not Available [facility] 04/21/2024 13:45:07 Influenza, high-dose, trivalent, PF 2 completed Not Available [facility] 04/21/2024 13:45:07 Pneumococcal conjugate PCV20, polysaccharide NJV000 conjugate, adjuvant, PF 4 completed Not Available [facility] 04/21/2024 13:45:07 Influenza, adjuvanted, trivalent, PF 4 completed Not Available [facility] 04/21/2024 13:45:07 influenza, unspecified formulation 4 completed Not Available [facility] 03/15/2019 02:21:18 Influenza, split virus, quadrivalent, preservative 8 completed Not Available [facility] 03/01/2019 03:55:23 Pneumococcal conjugate PCV 13 8 completed Not Available [facility] 03/01/2019 03:55:14 Influenza, split virus, quadrivalent, preservative 9 completed Not Available [facility] 03/01/2019 03:56:07 Past Encounters Encounter ID Performer Location Encounter Start Date Encounter Closed Date Diagnosis/Indication Diagnosis SNOMED-CT Code Diagnosis ICD10 Code Diagnosis Note [id number] LIDA Jurado [employer] [address] [facility] [place] [address] 12/09/2015 13:03:20 12/09/2015 15:03:29 Routine gynecologic examination done 2465521716 01 Z01.419 Depression screening 171 197063 Z13.89 Hypertensi on screening 358601374 Z13.6 Diet education 44069604 Z71.3 Encourage healthy eating/dec reased fats, sugars, fried foods Counseling 991684643 Z71 .9 Encouraged regular exercise 30 min/day 3 days/wk Menopausal syndrome 1237 18184 N95.9 Discussed Ca/Vit D intakeReco mmend weight bearing exercise Candidal vulvovaginitis 32784651 B37.3 Uterine cervix absent 24 2767834 Z90.710 History of left oophorectomy 172292785 Z90.721 Body mass index 40+ - severely obese 392921484 Z68.41 [id number] Jsutine Beltran APRN [address] [place] [address] 01/18/2016 10:36:25 01/18/2016 11:13:55 Sinusitis 80310044 J32.9 [id number] Leroy Roe [address] [place] [address] 05/26/2016 08:55:08 05/26/2016 10:22:53 Vitamin D deficiency 86016616 E55.9 History of bariatric surgical procedure 806676279 Z98.84 Vitamin B1 2 deficiency (non anemic) 95576009 E53.8 Hypocalcemia 6253929 E83 .51 Ferritin l evel below reference range 827224033 R77.8 Cramp in lower limb 4499 45696 R25.2 Essential hypertension 69693898 I10 ECG shows SR with PAC, LAD and RBBB similar to previous ECG prior to last knee surgery. Asymptomat ic. Will work-up anemia with lab work. Consider hematology referral prior to surgery. Osteoarthr itis of knee 211188874 M17.11 [id number] Leroy Roe [address] [place] [address] 06/21/2016 13:38:10 06/21/2016 15:36:27 Complication of infusion 7970670 T80.89XA Provided reassuranc e that iron will not cause any skin breakdown or , but that hyperpigme ntation will likely be present for a long time. Advised that she contact Dr. Lafleur' office for this concern. Will add triamcinol one for symptomati c relief. [id number] Leroy Roe, [address] [place] [address] 06/26/2016 08:04:06 06/26/2016 09:08:00 Pre-surgery evaluation 625217439 Z01.818 ECG reviewed - similar to previous ECG obtained on 05/26/16 and 07/15/15. CXR = normal. Blood work - improved since last with Hbg = 11.7. She does not have any chronic medical conditions that would exclude her from having surgery, making her an overall low risk surgical candidate. History of bariatric surgical procedure 588348127 Z98.84 Chronic vitamin deficienci es secondary to surgery. Has already started sun therapy and is obtaining supplement ation for VitD from bariatric surgery center. Previous vitamin B12 level is normal, but MMA is >300 which indicates poor absorption . Osteoarthr itis of knee 622210415 M17.11 [id number] Leroy Roe, [address] [place] [address] 07/25/2016 08:29:11 07/25/2016 10:25:28 Dyspnea 493301412 R06.01 Pre-operat cesar CXR showed borderline cardiomega ly. No previous history of CHF, but with symptoms, echo warranted. Pain in calf 245885844 M 79.661 M79.662 Unlikely DVT, but with recent non-weight bearing status, will rule out. [id number] Leroy Roe [address] [place] [address] 08/30/2016 14:36:22 08/30/2016 15:51:29 Chronic obstructive pulmonary disease 93387713 J44.9 Peripheral edema 2912519 00 R60.9 Echocardio gram is essentiall y normal with EF = 65-70%; BLE doppler = negative. No previous signs of CKD or liver disease. She has discontinu ed Mobic which could possibly cause LE swelling. I've asked her to stop Mirapex as well as this can cause edema. Possibly venous insufficie ncy. If no identifiab le cause after testing, will refer to cardiology . Osteoarthr itis of knee 766296125 M17.11 eKasper reviewed. We will provide a temporary supply of Bend since we are stopping Mobic and this may benefit her RLS. Encouraged re-establi shment with Ortho. Left lower quadrant pain 668032384 R10.32 Unlikely edema is secondary to neoplastic process, but with LLQ pain, we will obtain US. [id number] Leroy Roe DO [address] [place] [address] 09/26/2016 08:50:30 09/26/2016 09:41:08 Osteoarthritis of knee 317868452 M17.11 eKasper reviewed. We will provide a temporary supply of Bend. Encouraged physical activity - primarily water aerobics. Dyspnea 217025349 R06.02 Major depr essive disorder 205176117 F32.9 [id number] Hugo Quiroz MD [address] [place] [address] 12/25/2016 14:02:28 12/25/2016 15:02:50 Iron deficiency anemia 79131292 D50.9 [id number] Rylan Montgomery MD [address] [place] [address] 03/12/2017 13:10:33 03/12/2017 15:34:56 Arthritis 6949136 M19.90 Pain of joint 53084182 M 25.50 Gouty arthropathy 794814 008 M10.09 Body mass index 40+ - severely obese 872109683 Z68.41 History of iron deficiency 523748930 Z86.39 Edema of l ower extremity 538893259 R60.0 Obstructiv e sleep apnea syndrome 24502160 G47.33 Essential hypertension 79179989 I10 Major depr essive disorder 286227278 F32.9 Acid reflux 001971449 K2 1.9 Renewal of prescription 208570980 Z76.0 Knee pain 29365554 M25.5 69 [id number] Rylan Montgomery MD [address] [place] [address] 04/23/2017 07:56:57 04/23/2017 09:51:54 Essential hypertension 64532491 I10 Anxiety disorder F41.9 Arthritis 2493132 M19.90 Acid reflux 387905582 K2 1.9 Restless legs 51830670 G 25.81 History of iron deficiency 684732152 Z86.39 Chronic pain 38328190 G8 9.29 Erosive osteoarthrosis 999998706 M15.4 Hypoxia 654728958 R09.02 Nocturnal Body mass index 40+ - severely obese 631085224 Z68.41 Knee pain 51042511 M25.5 69 Chronic ob structive pulmonary disease 40237660 J44.9 Pain of mu ltiple joints 93931772 M25.50 [id number] Rylan Montgomery MD [facility] [address] [place] [address] [place] [address] 06/25/2017 16:30:38 06/25/2017 18:10:05 Foot pain 37118815 M79.671 Erosive osteoarthrosis 751672022 M15.4 Muscle weakness 08067297 M62.81 [id number] Rylan Montgomery MD [address] [place] [address] 07/25/2017 10:42:35 07/25/2017 12:40:15 Essential hypertension 46708797 I10 Erosive osteoarthrosis 599997111 M15.4 Restless legs 95546039 G 25.81 Acid reflux 398641237 K2 1.9 Chronic ob structive pulmonary disease 25628730 J44.9 Body mass index 40+ - severely obese 077512154 Z68.41 [id number] Rylan Montgomery MD [facility] [address] [place] [address] [place] [address] 09/04/2017 10:05:57 09/04/2017 12:23:44 Hypoxia 070668477 R09.02 Nocturnal Essential hypertension 75361346 I10 History of iron deficiency 662455945 Z86.39 Anxiety disorder 06 F41.9 Restless legs 49928833 G 25.81 Arthritis 5006333 M19.90 Acid reflux 794317303 K2 1.9 Pain of joint 25537153 M 25.50 Gouty arthropathy 587381 008 M10.09 Low back pain 166229272 M54.5 Right flank pain 1005805 09 R10.9 Knee pain 63508907 M25.5 69 [id number] Toni Tom MD [address] [place] [address] 10/19/2017 12:38:22 10/19/2017 14:05:50 History of iron deficiency 307670978 Z86.39 Acid reflux 422260749 K2 1.9 Renewal of prescription 617634281 Z76.0 Knee pain 59418951 M25.5 62 Anxiety disorder 3470832 06 F41.9 Essential hypertension 09850105 I10 Restless legs 23229684 G 25.81 Arthritis 9488560 M19.90 Disorder o f skin pigmentation 35953096 L81.9 secondary to iron deposits Heel pain 0236997 M79.67 1 Depressive disorder 3548 9007 F32.9 [id number] Toni Tom MD [address] [place] [address] 11/16/2017 12:29:16 11/16/2017 14:14:33 Erosive osteoarthrosis 524279521 M15.4 Arthritis 1903331 M19.90 Anxiety disorder 06 F41.9 Essential hypertension 96290376 I10 Body mass index 40+ - severely obese 073854204 Z68.41 Morbid obesity 097018801 E66.01 Low back pain 002688396 M54.5 Administra tion of influenza vaccine 09035528 Z23 Administra tion of pneumococcal vaccine 17493638 Z23 T[address] ef[address] of heavy metal 11164559 T56.91XA [id number] Talib Briggs MD [address] [place] [address] 01/16/2018 08:56:12 01/16/2018 10:22:50 Erosive osteoarthrosis 550436658 M15.4 Restless legs 94922505 G 25.81 Arthritis 9394396 M19.90 Venous ins ufficiency of leg 175225770 I87.2 inflamed veins in leg Body mass index 30+ - obesity 587908501 Z68.39 Body mass index 40+ - severely obese 523500387 Z68.41 [id number] Talib Briggs MD [address] [place] [address] 02/13/2018 08:12:30 02/13/2018 09:24:58 Anxiety disorder 592912248 F41.9 Erosive osteoarthrosis 627655918 M15.4 Restless legs 24607174 G 25.81 Body mass index 30+ - obesity 788327689 Z68.39 Gastroesop hageal reflux disease without esophagitis 324305550 K21.9 Knee pain 85625338 M25.5 69 Major depr essive disorder 254371104 F32.9 Glucose le canelo outside reference range 853954827 R73.09 Essential hypertension 89584292 I10 Body mass index 40+ - severely obese 550895280 Z68.41 [id number] Cathy Odom [address] [place] [address] 05/14/2018 11:03:46 05/14/2018 12:27:57 Knee pain 24361710 M25.569 Spasmodic cough 89969628 R05 Upper resp iratory infection 58410299 J06.9 Contact dermatitis 23547 004 L25.9 [id number] Ludivina Pettit [address] [place] [address] 08/21/2018 13:30:20 08/21/2018 15:17:39 Acid reflux 659465241 K21.9 Burning ep igastric pain 89656568 R10.13 Nausea 869504409 R11.0 Restless legs 18735958 G 25.81 History of bypass of stomach 980491575 Z98.84 [id number] LIDA Jurado [employer] [facility] [place] [address] 11/18/2018 10:11:43 11/18/2018 11:29:21 Routine gynecologic examination done 0359244328 9101 Z01.419 Depression screening 171 148363 Z13.89 Hypertensi on screening 730965814 Z13.6 Diet education 52741157 Z71.3 Encourage healthy eating/dec reased fats, sugars, fried foods Screening for malignant neoplasm of breast 408097049 Z12.31 Counseling 626031268 Z71 .82 Encouraged regular exercise 30-40min/d ay 4-5 days/wk Administra tion of influenza vaccine 88191860 Z23 Menopausal syndrome 1237 53385 N95.9 Discussed Ca/Vit D intakeReco mmend weight bearing exercise Uterine cervix absent 24 6893197 Z90.710 History of left oophorectomy 071113654 Z90.721 Body mass index 30+ - obesity 521849856 Z68.36 Genital li draper sclerosus 229805488 L90.0 [id number] Nini Rockwell APRN [address] [place] [address] 10/04/2023 08:42:42 10/04/2023 09:48:18 Hyperlipidemia 07026027 E78.5 Body mass index 40+ - severely obese 406121729 Z68.41 Morbid obesity 956058834 E66.01 History of bypass of stomach 698262281 Z98.84 2007 Acquired i maribel deficiency anemia due to decreased absorption 476445556 D50.8 amy mathews md /GI [facility].belem garzon md/[facility] Endocrine/ metabolic screening 823114761 Z13.228 Hyperglycemia 03165707 R 73.9 [id number] Akil Mckenzie MD [facility] [address] [place] [address] 01/08/2024 15:37:52 01/08/2024 16:16:12 Sore throat 928442474 J02.9 Body mass index 40+ - severely obese 692958704 Z68.41 Acute bact erial pharyngitis 716538132 J02.9 Rapid strep obtained in clinic today and was positive. Recommend patient to gargle frequently with warm salt water, hot tea with honey, lozenges or sprays, and saline nasal spray as needed. Advised ibuprofen or acetaminop hen as needed for pain control. Should symptoms persists or become worse, RTC for re-evaluat ion. Begin all meds as written today. Patient expressed understand ing with no further questions. Follow up as needed. Peripheral venous insufficiency 08118634 I87.2 Chronic in nature, PVD versus lymphedema diagnoses discussed with patient. Does want a vascular surgery referral today with Dr. Beauchamp. [id number] Pauly Dumont MD [facility] [address] [place] [address] 02/29/2024 14:07:45 02/29/2024 15:06:10 Restless legs 43232389 G25.81 Patient reports that the combinatio n of gabapentin and pramipexol e has helped her restless leg syndrome in past. Will resume gabapentin 600 mg daily scheduled at night in conjunctio n with pramipexol e 1 mg daily scheduled. Plan to follow up in 4 weeks. Hyperlipidemia 36517282 E78.5 Patient has history of hyperlipid emia and CAD. Continue medical therapy with rosuvastat in, aspirin and metoprolol . Patient will be referred to cardiology for further management of CAD and atrial fibrillati on. Follow up in 4 weeks. History of iron deficiency 632006532 Z86.39 Management per [facility] hematology /oncology; patient recently had iron studies completed. Chronic ob structive pulmonary disease 31260803 J44.9 Patient has history of COPD, uncertain stage, managed with albuterol inhaler. As patient has gone through 6 albuterol inhalers in the past 3 months, will order repeat PFTs, start patient on maintenanc e inhaler and refer to pulmonolog y. Follow up in 4 weeks. Chronic at rial fibrillation 689660851 I48.20 Patient reports history of atrial fibrillati on diagnosed in 2019 for which she is on Xarelto currently. Will refill Xarelto at this time, as patient says she hasn't been on it for 4 months due to insurance issues and refer patient to cardiology . Obesity 319079004 E66.9 Body mass index 40+ - severely obese 771515742 Z68.41 Patient has history of morbid obesity s/p bariatric surgery. Per patient's GI, will initiate patient on Ozempic fur further weight loss and cardioprot ective effects. Most recent A1c in September 2023 is 5.3. Follow up in 4 weeks for dose titration. Hypoxia 989725185 R09.02 Patient reports that she becomes short of breath when lying flat and has difficulty sleeping more than 1-2 hours at night, concerning for KENNETH. Will order home sleep study to include/ex clude KENNETH as cause of symptoms so patient may get CPAP therapy if needed. Difficulty sleeping 3013 85405 Z72.820 Patient reports that she is experienci ng difficulty sleeping which could be secondary to combinatio n of volume overload, COPD, KENNETH and restless leg. Will order home sleep study to include/ex clude KENNETH as cause of difficulty sleeping, so that patient may obtain CPAP if needed. Have also adjusted restless leg medication s as outlined above. Follow up in 4 weeks. [id number] Kyra Bryan MD [facility] [address] [place] [address] 03/24/2024 14:57:27 03/24/2024 15:39:32 Restless legs 75486306 G25.81 Patient reports that the combinatio n of gabapentin and pramipexol e has helped her restless leg syndrome in past. Will resume gabapentin 600 mg daily scheduled at night in conjunctio n with pramipexol e 1 mg daily scheduled. Prescripti on sent to pharmacy by supervisin g physician. Plan to follow up in 4 weeks. Chronic ob structive pulmonary disease 45283746 J44.9 Patient has history of COPD, uncertain stage, managed with albuterol inhaler. PFTs performed in February 2024 show relatively normal spirometry unchanged post bronchodil ator administra tion which is not consistent with COPD; etiology could be secondary to OHS or KENNETH. Will remove COPD from problem list. History of iron deficiency 612756779 Z86.39 Management per [facility] hematology /oncology; patient recently had iron studies completed. Morbid obesity 157755614 E66.01 Patient's GI recommende d that she try Ozempic for both weight loss and cardioprot ective effects; insurance has denied it. Patient will be initiated on Zepbound as she is not diabetic; plan to follow up in 4 weeks for dose titration. Chronic at rial fibrillation 752321537 I48.20 Patient reports history of atrial fibrillati on diagnosed in 2019 for which she is on Xarelto currently. Continue Xarelto; patient has appointmen t with cardiology on the . [id number] Kyra Bryan MD [facility] [address] [place] [address] 04/21/2024 13:43:53 04/21/2024 14:40:38 Hyperlipidemia 75672660 E78.5 Patient has previous history history of hyperlipid emia and CAD. Continue medical therapy with rosuvastat in. Patient has been taken off metoprolol and Xarelto by cardiologi st. Echocardio gram pending. Follow up in 4 weeks. Restless legs 95252913 G 25.81 Patient reports that the combinatio n of gabapentin and pramipexol e has helped her restless leg syndrome in past. Will resume gabapentin 600 mg daily scheduled at night in conjunctio n with pramipexol e 1 mg daily scheduled. Prescripti on sent to pharmacy by david carlos physician. Plan to follow up in 4 weeks. Chronic at rial fibrillation 262030352 I48.20 Patient reports history of atrial fibrillati on diagnosed in 2019 for which she is on Xarelto currently. Patient was never formally followed by cardiology previously to establish diagnosis of atrial fibrillati on. Patient is currently wearing Holter monitor and is off Xarelto. Management per cardiology . Follow up in 4 weeks. Peripheral venous insufficiency 28908438 I87.2 Patient has bilateral lower extremity edema likely secondary to hypoalbumi nemia as she reports that the diuretic she is taking does not help. Have advised patient to increase intake of protein to decrease third spacing. Morbid obesity 953642045 E66.01 Patient's GI recommende d that she try Ozempic for both weight loss and cardioprot ective effects; insurance has denied it and has also denied Mounjaro. Patient remains morbidly obese and unable to exercise sufficient ly secondary to lymphedema and elevated BMI. Patient would benefit from injectable medication for weight loss and increased quality of life. Patient will be initiated on Wegovy as she is not diabetic; plan to follow up in 4 weeks for dose titration. Body mass index 40+ - severely obese 987070889 Z68.41 Patient has history of morbid obesity s/p bariatric surgery. Most recent A1c in September 2023 is 5.3. Follow up in 4 weeks for Wegovy dose titration. Health Concerns Section Related Observation LastModified by Organization Detai ls LastModified Time None Recorded Concern Status LastModified by Organization Details LastModified Time None Recorded Advance Directives Directive N: Payers Insurance Date Sequence Insurance Name Policy Number Policy Flanagan Covered Member ID Flanagan Member ID Guarantor Name 10/04/2023 1 [place] [id number] María Bucio [id number] María Bucio 10/04/2023 [place] María Bucio [id number] María Bucio 10/04/2023 [employer] [place] María Bucio [id number] María Bucio 10/04/2023 2 [place] María Bucio [id number] María Bucio 10/04/2023 2 [employer] [place]ICA[place] María Bucio [id number] María Bucio 04/10/2016 1 UNSPECIFIED REMIT PAYOR María Bucio 04/21/2024 1 [employer] (MEDICARE REPLACEMENT/AD VANTAGE - PPO) María Bucio [id number] María Bucio 10/04/2023 1 [employer] - CHOICECARE (PPO) [id number] María Bucio [id number] María Bucio 10/04/2023 [employer] (MEDICARE REPLACEMENT/AD VANTAGE - PPO) [id number] María Bucio [id number] María Bucio Notes Date Note Type Note Provider Name and Address Organization Details Recorded Time 10/04/2023 text/html María is a 68 year old female that presents today to establish care. She is needing some labs done that her hem/onc provider ordered for her. as above, pt transferring from pcp in [place]. follows with hem/oc; gi/cardio at [facility] in [place] getting FE transfusions there as well.going to see specialist at [facility] regarding treatment for severe ramesh lower ext lymphadema. Nini Rockwell, [employer] [address], [place], [address], [place] - [facility] 10/04/2023 20:50:19 01/08/2024 text/html Onset of symptom s for 2 days, cough, headache, sore throat, nasal congestion, sinus drainage. Has been around multiple grandchildren that have been sick with strep in the last week or so.Does want recommendation for vascular surgeon referral for her peripheral vascular disease and persistent lower extremity edema. Akil Mckenzie MD [address], [place], [address], [place] - [facility] 01/08/2024 16:23:44 02/29/2024 text/html New patientscott ds med refills. Weight loss concerns, GI is wanting her to be on Ozempic, just had blood work yesterday with GI doctor at [facility]. Has results on her phone. Bypass surgery + GERD - Patient reports past history of gastric bypass and GERD. Patient reports that she had a [place] en Y bypass in 2006 and was diagnosed with GERD in 1995. Patient had bypass surgery because her esophagus was damaged from reflux and required repair and she weighed 335 pounds. Patient reports that her weight went down to 170 pounds and stayed there until her got sick in 2010 and she cared for him for 5 years until he passed in 2015. Since then her weight has been largely around 240 lbs, but she recently gained approximately 14-20 pounds in the past month because of a nasal spray she has been using (she reports that she had severe nausea and vomiting and stomach pain when she tried to eat). She went to her GI doctor recently and he recommended Ozempic for her weight loss and for its cardioprotective effects. Patient follows with a GI at [facility]. Patient recently had a CT angiogram of her abdomen because there's blockage in one of the arteries leading to the stomach which was negative for mesenteric ischemia but did show hiatal hernia. CAD and hyperlipidemia - Patient reports that she was diagnosed with coronary artery disease in 2019. She reports that when she was having her knee replacement, she went into atrial fibrillation. Post-operatively she had an angiogram and that showed CAD. She takes atrial fibrillation for her Xarelto, as well as metoprolol, aspirin and rosuvastatin for her CAD and hyperlipidemia. She reports that she is supposed to follow a russian language professor and would like a referral. Iron deficiency - Patient follows with hematology/oncology at [facility] for iron infusions - she cannot tolerate oral iron secondary to bypass. COPD and difficulty sleeping - Patient was diagnosed with COPD in which she attributes to passive tobacco exposure as she hasn't smoked since she was 19 years old. Patient would like a referral to pulmonology for further management. Patient reports that she has gone through 6 inhalers in the past 3 months - she thinks she is having more difficulty breathing now because of her recent weight gain. Patient is having difficulty breathing at night as well and doesn't really sleep - would like a referral for home sleep study as well. Restless leg syndrome - Patient reports that she was diagnosed with restless leg syndrome in 2009 when she moved here. Patient reports that she has been on gabapentin (400 mg twice a day), and ropinirole previously - she reports that the gabapentin helped but only for an hour and the ropinirole made her extremely nauseous. Patient reports that she has been on gabapentin and pramipexole together and that made her symptoms tolerable - she was taken off the gabapentin 2 years ago because she was told that she didn't need two medications. Lymphedema - Patient reports that she began having swelling of her bilateral lower extremities in 2016. She states that she had an iron infusion at that time that didn't go into a blood vessel, rather into the tissues of her arm itself which caused overlying skin discoloration. She states that she woke up the next morning, and her legs were like tree trunks and have not gone down since then. She takes torsemide to manage the swelling and it doesn't help. She also sleeps in a recliner with her feet up. Patient does not smoke cigars, cigarettes or vape. Patient drinks alcohol once every 6-7 months. Patient denies illicit drug use. Patient does not have known allergies. Patient reports that her sister has breast cancer and Stage IV/V kidney failure, her mother had multiple myeloma, one of her sons has thyroid cancer and one had to have a liver replacement for cirrhosis (not due to alcohol). Patient denies fevers, chills, chest pain, abdominal pain, nausea, vomiting, diarrhea, constipation, headache, dizziness, weakness. Patient reports coughing, shortness of breath, palpitations, back pain, neck pain, numbness of hands and feet occasionally. Pauly Dumont MD [address], [place], [address], [place] [facility] 02/29/2024 18:10:54 03/24/2024 text/html Established rudi ent follow up. Had recent blood work with gastro, has results with her. Needs gabapentin sent in, was not sent at last visit. Patient is presenting for follow up. Patient had bloodwork done at her fringing machine operator on March 21; demonstrated low iron saturation, low hemoglobin, low MCHC and high RDW. Patient is expecting that she will need additional iron infusions and possibly blood transfusion. Patient has been through a workup by a hoop coiling machine operator and they have not been able to identify the cause of her anemia. Will request records from GI. Patient reports that her Ozempic was denied by her insurance; she is not sure why. Patient reports that Mounjaro/Zepbound is also covered by her insurance and requests that we try this. Patient had PFTs done at [facility] but hasn't yet received the results. Patient also has not heard anything about her home sleep study from central scheduling. Patient has an appointment with front end loader driver tomorrow where she is getting breathing tests and seeing her doctor. Patient has a russian language professor appointment with Dr. Bedoya on April 04. Patient reports that she saw a new pill created by a medical billing associate thaat is all natural advertised for lymphedema through social media that was being promoted by a doctor. She has been taking the pills for some time now, and reports that her lymphedema has significantly improved. Concetta Salazar, DO [address], [place], [address], [place] [facility] 03/24/2024 15:49:15 04/21/2024 text/html Patient here for follow up on COPD. Patient had spirometry testing done at hospital in February 2024; results are not consistent with COPD with FEV/FVC of 77 and post-bronchodilator testing of 80. Patient saw russian language professor on April 04; he has reviewed previous cardiac catheterizations which showed no evidence of CAD. Patient had previously gone into atrial fibrillation during her knee surgery, and was apparently not re-evaluated by a russian language professor after that to determine if Xarelto is necessary. He has told patient to stop taking Xarelto and metoprolol. Patient had echocardiogram done but the results are not final yet. Patient is wearing Holter in order to determine whether she is in atrial fibrillation or not - she is scheduled to have it removed on the . Patient has appointment with Dr. Bedoya on the . Patient states that her legs are still terrible; she states that she is up half the night walking around just to make it stop. Patient states that she hasn't been able to afford the gabapentin prescription but will have the money on May 13 and plans to get it filled then. Patient also states that her lymphedema is getting worse; she states that she does take the torsemide every day. Patient states that it does not make much of a difference in her weight. Patient states that no-one has contacted her regarding her sleep study. Patient also states that she wants to lose weight; Ozempic and Mounjaro have both been denied. Patient does not want to have surgery again. She is open to trying Wegovy. Patient denies fevers, chest pain, abdominal pain, nausea, vomiting, diarrhea, constipation; patient reports shortness of breath. Concetta Salazar, DO [address], [place], [address], [place] [facility] 04/23/2024 08:36:42 OBGyn Episode No OBEpisode recorded.
--- OUTSIDE RECORDS SUMMARY | 2024-08-13 10:45 | XMS_ITS | CCD ---
Author Name Interface, [id number] lity Address [address] [place], [place] [id number] Organization [facility] Address [address] [place], [place] [id number] Care Team Providers Care Molder Helper Name Role Phone Miquel PULLIAM, Corby Welsh Unavailable Unavailable Allergies and Adverse Reactions Reason for Visit Medications Problems Social History
--- OUTSIDE RECORDS SUMMARY | 2024-08-13 10:45 | XMS_ITS | Clinical Summary ---
Author Organization [facility] Address [address] [place] [address] Care Team Providers Care Spring Repairer Helper Hand Name Role Phone Rylan Montgomery MD Primary Care Provider Allergies No known active allergies Medications meloxicam (MOBIC) 15 MG tablet 06/10/2016 Active pramipexole (MIRAPEX) 1 MG tablet 06/10/2016 Active tiZANidine (ZANAFLEX) 4 MG tablet 05/26/2016 Active vitamin D (CHOLECALCIFEROL ) 1000 UNIT TABS tablet Take 1,000 Units by mouth daily Active ferrous sulfate 325 (65 FE) MG tablet Take 325 mg by mouth daily (with breakfast) Active pantoprazole (PROTONIX) 20 MG tablet Take 20 mg by mouth daily Active Active Problems Problem Noted Date Diagnosed Date Iron deficiency anemia secon latrice to inadequate dietary iron intake 06/14/2016 Malabsorption of iron 06/14/2016 Social History Tobacco Use Types Packs/Day Years Used Date Smoking Tobacco: Former Smokeless Tobacco: Never Tobacco Cessation:Counseling Given: No Comments Unknown Sex and Gender Information Value Date Recorded Sex Assigned at Not on file Legal Sex Female 1:47 PM EDT Gender Identity Not on file Sexual Orientation Not on file Last Filed Vital Signs Vital Sign Reading Time Taken Comments Blood Pressure 124/72 07/25/2016 10:52 AM EDT Pulse 74 07/25/2016 10:52 AM EDT Temperature 36.6 C (97.9 F) 06/27/2016 9:34 AM EDT Respiratory Rate 20 07/25/2016 10:5 2 AM EDT Oxygen Saturation - - Inhaled Oxygen Concentration - - Weight 118.4 kg (261 lb 0.4 oz) 12/16/2019 9:58 AM EST Height 165.1 cm (5' 5 ) 12/16/2019 9:58 AM EST Body Mass Index 43.44 12/16/2019 9:58 AM EST Plan of Treatment Not on file Insurance Care Teams Spring Repairer Helper Hand Relationship Specialty Start Date End Date Rylan Montgomery MD PCP - General Family Medicine 12/16/19
== END 2024-08-11 23:59 | disposition home or self-care (01) ==
LOC: LAB.DROPOF 08-13 10:41
PROVIDERS: PCP Family Medicine; Visit Provider Family Medicine
DX: Z11.59 Encounter for screening for other viral diseases (principal); I10 Essential (primary) hypertension; R60.0 Localized edema; Z86.2 Personal history of diseases of the blood and blood-forming organs and certain disorders involving the immune mechanism
CPT/HCPCS: 80053; 80061; 83036; 83540; 83550; 84443; 85025; 86803; 87389